=== PATIENT | female | born 1970 | race Caucasian/White ===

== ENCOUNTER 2019-09-04 17:00 | Inpatient (IN) ==
[2019-09-04] MEDS ORDERED: NS 1,000 ML IV ONE (17:54)
--- NOTE | 2019-09-04 18:11 | PROVIDER DOCUMENTATION ---
HPI-General Adult - General Chief Complaint: Abnormal Lab[s] Stated Complaint: DR REFERRAL Time Seen by Provider: 09/04/19 17:55 Source: patient, family Allergies/Adverse Reactions: Patient Allergies Allergy/AdvReac Type Severity Reaction Status Date / Time bupropion HCl * Allergy Intermediate NAUSEA/VOMI Verified 08/04/18 10:12 [From Wellbutrin] TING clarithromycin [From Biaxin] Allergy Intermediate RASH Verified 08/04/18 10:12 meperidine HCl * Allergy Intermediate NAUSEA/VOMI Verified 08/04/18 10:12 [From Demerol] TING Penicillins Allergy Intermediate NAUSEA/VOMI Verified 08/04/18 10:12 TING sulfamethoxazole Allergy Intermediate NAUSEA/VOMI Verified 08/04/18 10:12 [From Bactrim DS] TING trimethoprim Allergy Intermediate NAUSEA/VOMI Verified 08/04/18 10:12 [From Bactrim DS] TING temazepam [From Restoril] Allergy Mild felt Verified 08/04/18 10:12 strange Home Medications: Home Medication List Medication Instructions Recorded Confirmed Last Taken Type Cephalexin [Keflex] 500 mg PO Q6HR 7 Days #28 cap 08/04/18 Unknown Rx Erythromycin Oph Ointment 1 applicatn BOTH EYES 4XDAY 7 Days 08/04/18 Unknown Rx #1 tube Ondansetron [Zofran Odt] 4 mg PO Q4HR PRN #20 tab.rapdis 08/04/18 Unknown Rx - History of Present Illness -Gen Adult Nature of Presenting Problems: 49 yof presents per the direction of Dr. Hassan for initiation of TPN. She has had weight loss, poor appetite, n/v and reports she has been getting IVF as outpatient but now has edema in BLE up to the hips. she appears chronically ill but in NAD. Location of Pain/Injury: reports: abdomen Pain Radiation: reports: no radiation Quality of Pain: reports: pressure Severity: reports: moderate Onset/Duration: reports: unsure Timing: reports: still present Context/Activities at Onset: reports: none Modifying Factors: improves with: nothing Associated Symptoms: reports: fatigue, loss of appetite, nausea, vomiting, weakness Similar Symptoms Previously?: Yes Recently seen or treated by another doctor?: Yes (pcp Dr. hassan) Review of Systems - Adult - REVIEW OF SYSTEMS - ADULT Constitutional: reports: fatique, weight loss. denies: no symptoms reported, see HPI, chills, fever, night sweats, weight gain, other Eyes: reports: no symptoms reported. denies: see HPI, discharge, dry eyes, decreased vision, blurred vision, double vision, eye pain, redness, other Ears, Nose, Mouth & Throat: reports: no symptoms reported. denies: see HPI, ear discharge, ear pain, hearing loss, tinnitus, epistaxis, sinus problem, nose pain, loose teeth, mouth/dental pain, mouth swelling, hoarseness, throat pain, throat swelling, other Cardiovascular: reports: edema. denies: no symptoms reported, see HPI, chest pain, heart murmur, irregular heart rate, orthopnea, palpitations, poor circulation, PND, syncope, other Respiratory: reports: no symptoms reported. denies: see HPI, chronic cough, cough, dyspnea on exertion, excessive sputum production, hemoptysis, pleurisy, shortness of breath, wheezing, other Gastrointestinal: reports: see HPI, nausea, vomiting, other (bloating). denies: no symptoms reported, abdominal pain, hematemesis, constipation, diarrhea, difficulty swallowing, frequent heartburn, poor appetite, rectal bleeding Genitourinary: reports: no symptoms reported. denies: see HPI, dysuria, discharge, frequency, flank pain, frequent UTI's, hematuria, hesitency, incontinence, urinary retention, urgency, other Musculoskeletal: reports: no symptoms reported. denies: see HPI, bone pain, back pain, frequent leg cramps, joint pain, joint swelling, muscle aches, muscle weakness, neck pain, other Integumentary: reports: no symptoms reported. denies: see HPI, hives, hair loss, itching, mole changes, nail changes, rash, skin sores/ulcer, skin thickening, other Neurological: reports: no symptoms reported. denies: see HPI, ataxia, diz ziness/vertigo, headache/migraines, loss of balance, numbness, paresthesia, seizure, slurred speech, syncope, tremors, other Psychiatric: reports: no symptoms reported. denies: see HPI, anxiety, anti- depressant use, alcohol/drug dependence, depression, emotional problems, i nsomnia, panic attacks, suicidal thoughts, other Endocrine: reports: no symptoms reported. denies: see HPI, change in skin pigment, excessive sweating, goiter, cold intolerance, heat intolerance, increased hunger, increased thirst, polyuria, other Hematologic/Lymphatic: reports: no symptoms reported. denies: see HPI, blood clots, easy bruising, low blood count, lymphedema, prolonged bleeding, swollen lymph nodes, transfusions, other Allergic/Immunologic: reports: no symptoms reported. denies: see HPI, allergic reactions, allergic rhinitis, asthma, eczema, food allergy, frequent infections, hay fever, hives, positive PPD, urticaria, other Past History - Adult - PAST MEDICAL HISTORY-ADULT Review of Records: reports: Nursing Assessment Review, Social history reviewed & non-contributory. Major Childhood Illnesses: reports: denies history Cardiovascular: reports: HTN Respiratory: reports: COPD, sleep apnea Gastrointestinal: reports: other (SBO) Obstetrical/Gynecological: reports: denies history Genitourinary: reports: denies history Musculoskeletal: reports: chronic pain Neurological: reports: denies history Psychiatric: reports: anxiety Endocrine/Immune: reports: thyroid disorder Other Conditions: reports: denies history - PRIOR SURGERIES/PROCEDURES Surgical/Procedure History: reports: cholecystectomy, , hernia repair, gastric bypass - PRIOR HOSPITALIZATIONS Prior Hospitalizations: reports: none - IMMUNIZATION STATUS Childhood Immunizations: See Nurse Assessment Flu Vaccine: See Nurse Assessment - FAMILY HISTORY Family History: reviewed, not pertinent Physical Exam-General - PHYSICAL EXAM-ADULT Initial Vital Signs Reviewed: Yes - CONSTITUTIONAL General Appearance: alert, no apparent distress, thin - EYES Eyes: PERRL/EOMI, pink conjunctivae - HEAD, EARS, NOSE, MOUTH & THROAT HENMT: normocephalic/atraumatic, moist mucous membranes, normal ENT inspection - NECK Neck: non-tender, full range of motion, supple - RESPIRATORY Respiratory: chest non-tender, lungs clear, no pleuratic chest pain, no respiratory distress, no accessory muscle use, rales - CARDIOVASCULAR Cardiovascular: normal peripheral pulses, regular rate, rhythm, no gallop, no JVD, no murmur. negative: no edema (ble from ankles to hips) - GASTROINTESTINAL (ABDOMEN) Abdominal Exam: normal bowel sounds, non tender, distended - LYMPHATIC Lymphatic: no adenopathy - MUSCULOSKELETAL Back Exam: normal inspection, no CVA tenderness, no vertebral tenderness Extremity: normal range of motion, non-tender, normal inspection Peripheral Pulses: radial (R): 2+, radial (L): 2+ - SKIN Integumentary: normal color, normal turgor, warm/dry - NEUROLOGIC Neurologic: grossly normal - PSYCHIATRIC Psych/Mental Status: normal mood/affect, oriented x 3 Progress - PLAN OF CARE/RESULTS Progress/Plan/Lab Results: Vital Signs - 8 hr 09/04/19 17:20 Temperature 98.3 F Pulse Rate 80 Respiratory Rate 16 Blood Pressure 77/57 O2 Sat by Pulse Oximetry 100 Orders Category Date Time Status FSBS [Finger Stick Blood Sugar (ED)] DIRECTED Care 09/04/19 17:54 Active Saline Loc NOW Care 09/04/19 17:54 Active CBC WITH ELECTRONIC DIFF [HEME] Stat Lab 09/04/19 17:54 Uncollected COMPREHENSIVE METABOLIC PANEL [CHEM] Stat Lab 09/04/19 17:54 Uncollected MAGNESIUM [CHEM] Stat Lab 09/04/19 17:54 Uncollected PHOSPHORUS [CHEM] Stat Lab 09/04/19 17:54 Uncollected PROTIME WITH INR [COAG] Stat Lab 09/04/19 17:54 Uncollected PTT [COAG] Stat Lab 09/04/19 17:54 Uncollected UA NIMS W/REFLEX CULT [URINALYSIS] Stat Lab 09/04/19 17:54 Uncollected URINE DRUG SCREEN Stat Lab 09/04/19 17:54 Uncollected 0.9% Sodium Chloride Inj [Ns] 1,000 ml Med 09/04/19 17:54 Active IV 999 mls/hr EKG [EKG] Stat Ther 09/04/19 18:05 Ordered CORRECTED CALCIUM 8.7 2/2 HYPOALBUMIN Saw patient with INSURANCE UNDERWRITING ASSISTANT Chantelle Sotomayor. Patient appears chronically ill, jaundiced and anasarca. Upon reviewing her records she likely has undiagnosed liver disease. Her previous old images show fatty liver and some transaminitis. Her BP was low and these patient's chronically run low. Gave some albumin and BP improved. Also gave midodrine. Hypoglycemic and given D50 and started on D5 drip. XR showing pleural effusions. SPoke to Dr Kellogg with Chantelle Sotomayor and patient was accepted for admission. Further orders to be placed by their team. Sifter And Miller at bedside for consult. Dietary consult ordered. Result Diagrams: 09/04/19 19:19 09/04/19 19:19 - XRAY 1 XRAY Study: Chest Impression: See EMR Report (CHEST-1 VIEW - 09/04/2019 INDICATION: Line placement COMPARISON: 02/23/2018 FINDINGS: There is a right-sided dialysis catheter in good position with the distal tip at the lower SVC. There are small bibasilar pleural effusions. No pneumothorax. No infiltrates. Heart size and pulmonary vascularity are normal. IMPRESSION: No complication from line placement. Small bibasilar pleural effusions. Electronically signed by Eliu Peck 09/04/2019 6:40 PM 09/04/19 1840 Interpreting Physician: Eliu Peck MD Dictated Date/Time: 09/04/19 1839 cc: Lulu Sotomayor; Deshaun Hassan) - CONSULTS/PCP/HOSPITALIST Notification #1 *Consult/PCP/Hospitalist*: DR. KELLOGG Time Discussed: 21:10 Consult Disposition: Admit Departure - Departure Date of Disposition Decision: 09/04/19 Time of Disposition Decision: 21:09 DIAGNOSIS: Anorexia, Weakness, Hypotension, Anemia, Nausea & vomiting, Hypoglycemia, Jaundice, Cachexia Disposition: ADMITTED INPATIENT 09 Certified Medical Emergency: Emergent Condition: Fair Referrals and Follow-Ups: Deshaun Hassan [Primary Care Provider] - - Critical Care Note This patient required my direct & personal management of CC.: No Attestation - Physician/ AGAPITO Attestation Patient care was provided by Advanced Practice Provider:: Yes Advanced Practice Provider:: Lulu Sotomayor Advanced Practice Provider documentation review:: The Mid-level provider documentation, treatment plan and medical decision making was reviewed by the physician who agrees with all treatment and medical decision making by the P. The physician spent face to face time with patient:: No Advanced Practice Provider documentation review:: Supervising physician onsite and consulted in the evaluation and care of this patient. The physician did not have a face to face encounter with the patient.
--- NOTE | 2019-09-04 18:42 | Diag Imaging Result Doc PS360 ---
CHEST-1 VIEW - 09/04/2019 INDICATION: Line placement COMPARISON: 02/23/2018 FINDINGS: There is a right-sided dialysis catheter in good position with the distal tip at the lower SVC. There are small bibasilar pleural effusions. No pneumothorax. No infiltrates. Heart size and pulmonary vascularity are normal. IMPRESSION: No complication from line placement. Small bibasilar pleural effusions. Electronically signed by Eliu Peck 09/04/2019 6:40 PM
[2019-09-04] MEDS ORDERED: ALBUMIN 25% IV ONE (19:02)
[2019-09-04] MEDS ORDERED: PROAMATINE PO ONE (19:06)
[2019-09-04] MEDS ORDERED: NS 500 ML IV ONE (19:27)
[2019-09-04 20:01] LABS: BASO# 0.02 X1000 (0.0-0.2); BASO% 0.3 % (0.0-0.8); EOS# 0.06 X1000 (0.0-0.7); EOS% 0.9 % (0.0-10.0); HEMATOCRIT 25.6 % (37.0-47.0); HEMOGLOBIN 8.2 g/dL (12.0-16.0); LYMPH# 2.74 X1000 (1.2-3.4); LYMPH% 39.7 % (20.5-51.1); MCH 34.3 PG (27-31); MCV 107.1 FL (81-99); MONO# 0.37 X1000 (0.11-0.59); MONO% 5.4 % (1.7-9.3); MPV 10.1 FL (7.4-10.4); NEUT# 3.71 X1000 (1.4-6.5); NEUT% 53.7 % (42.2-75.2); PLT 179 X1000 (130-400); RBC 2.39 XMIL (4.2-5.4); RDW 13.5 % (11.5-14.5)
[2019-09-04 20:05] LABS: INR 1.55; PROTIME 18.9 Seconds (11.0-16.0)
[2019-09-04 20:06] LABS: PTT 38.2 Seconds (22.3-41.8)
[2019-09-04] MEDS ORDERED: D50W SYRINGE IV ONE ×3 (20:17→21:18)
[2019-09-04] MEDS ORDERED: D50W SYRINGE ONE (20:23)
[2019-09-04 20:38] LABS: AGAP 17; ALB/GLOB RATIO 0.8; ALBUMIN 1.8 g/dL (3.5-5.0); ALKALINE PHOSPHATASE 161 U/L (32-104); BUN 6 mg/dL (8-22); CALCIUM 6.9 mg/dL (8.8-10.2); CHLORIDE 115 mmol/L (98-107); COSMO 285; CREATININE 0.7 mg/dL (0.5-0.9); ESTIMATED GFR > 60; GLUCOSE 44 mg/dL (70-104); GOT 30 U/L (10-30); GPT 18 U/L (10-36); MAGNESIUM 1.7 mg/dL (1.5-2.7); PHOSPHORUS 1.6 mg/dL (2.7-4.5); POTASSIUM 3.4 mmol/L (3.5-5.1); PREALBUMIN 6.5 mg/dL (20-40); SODIUM 146 mmol/L (136-145); TCO2 14 mmol/L (25-35); TOTAL BILIRUBIN 0.34 mg/dL (0.20-1.00)
[2019-09-04] MEDS ORDERED: D5 1/2 NS + KCL 20 MEQ 1,000 ML IV ONE (20:53)
[2019-09-04] MEDS ORDERED: INSTA-GLUCOSE PO ONE (22:25)
--- NOTE | 2019-09-04 23:44 | HISTORY AND PHYSICAL ---
PRIMARY CARE PROVIDER: Deshaun Mendoza MD REASON FOR ADMISSION: Sent by doctor's office for abnormal labs. HISTORY OF PRESENT ILLNESS: Ms. Ravi is an unfortunate 49-year-old female with a past medical history of chronic low back pain; status post gastric bypass in 2004; iron-deficiency anemia; chronically elevated transaminitis; anxiety and depression. She came to the ED for abnormal lab work. She was supposed to initiate TPN at home; however, they were afraid of refeeding syndrome so she was directed to the ED. She was found to have anemia that appears to be stable, and hypokalemia. She was also found to be hypoglycemic with blood sugars in the 30s and 40s, as well as hypocalcemia at 6.9. Phosphate of 1.6, alkaline phosphatase 161, albumin of 1.8 and a prealbumin of 6.5. She reports yesterday home health came out and gave her several liters of fluid. She reports lower extremity swelling that goes all the way up into her hips, but she does report this has been ongoing for the past 5 years. She has had a complete workup to rule out thyroid cancer, stomach cancer, pancreatic cancer, liver cancer and female cancer. She reports when she eats she gets bad nausea or she will vomit what she eats. She can only eat small amounts at a time; however, she states that she does eat breakfast, lunch and dinner. In the morning she will have a biscuit with some type of meat, soup and salad for lunch, and she reports that she is able to cook a full dinner made from scratch. She reported that she does have an appointment with [facility] that she has not been able to keep, as well as [facility] in [place] secondary to having a port placed. She as well had some hypotension in the 70s, and 80s; however, the patient is not symptomatic with this. She was given IV fluid, midodrine as well as a dose of albumin in the E. We will monitor her in on PVC and continue with the D5 half normal saline with potassium drip. We will treat her hypocalcemia and obtain an EKG. The patient reports that she would not have come to the hospital had she not been called by her physician to come in. She reports feeling about her norm. PAST MEDICAL HISTORY: 1. Unexplained weight loss. 2. Moderate to severe malnutrition. 3. Anemia. 4. Depression. 5. Fatty liver. 6. Chronic low back pain. 7. Iron-deficiency anemia. PAST SURGICAL HISTORY: 1. Cholecystectomy. 2. Gastric bypass surgery. 3. Gastroduodenal junction following small-bowel obstruction. 4. Neck surgery. 5. Central line placement. FAMILY HISTORY: Notable for heart disease. No cancer in first-degree relatives. ALLERGIES: 1. Wellbutrin: Nausea and vomiting. 2. Biaxin: Rash. 3. Demerol: Nausea and vomiting. 4. Penicillin: Nausea and vomiting. 5. Bactrim DS: Nausea and vomiting. 6. Restoril: [place] strange. MEDICATIONS: Home medications are currently being compiled. REVIEW OF SYSTEMS: Twelve-point review of systems was completed and negative except for those mentioned in the HPI. PHYSICAL EXAMINATION: VITAL SIGNS: Temperature 98.3 degrees, heart rate 80, respirations 16, initial blood pressure was 77/57, O2 is 100% on room air. GENERAL: Ms. Ravi is a chronically ill-appearing 49-year-old female who looks older than her stated age. HEENT: Normocephalic. PERRL. Anicteric. Mucous membranes are dry. NECK: Supple. No JVD. CARDIOVASCULAR: S1, S2 appreciated. No murmurs, gallops or rubs noted. RESPIRATORY: Lung sounds clear bilaterally. ABDOMEN: Soft, nontender, nondistended. Normal bowel sounds. EXTREMITIES: Pitting edema 2 to 3+ up to the hips. Could not assess peripheral pulses in the lower extremities secondary to the edema. No clubbing or cyanosis. NEUROLOGIC: No focal deficits noted. SKIN: Appears to be warm, dry and intact. DIAGNOSTIC DATA: Chest x-ray shows no complication from line placement. Small bibasilar pleural effusions. LABORATORY DATA: White count 6, hemoglobin and hematocrit 8 and 25, platelet count is 179,000. Sodium 146, potassium 3.4, BUN 6, creatinine 0.7. Blood glucose initially 30s and 40s, now 87. Calcium is 6.9, phosphate 1.6, albumin 1.8. Prealbumin 6.5. ASSESSMENT AND PLAN: 1. Continued unexplained weight loss. The patient has had several workups in the past. Supposed to be following up with [facility] in [place], as well as [facility] in [place]. They are trying to get her PET scan approved. States she has been ruled out for all types of cancers, but she does have a history of a gastric bypass. 2. Severe protein-calorie malnutrition. She had an albumin of 1.8 and a prealbumin of 6.5. She was given some albumin in the emergency department . She is supposed to start home total parenteral nutrition; however, her family provider was worried about refeeding syndrome and wanted all her electrolytes corrected before starting total parenteral nutrition. 3. Anemia, appears to be of chronic disease, history of iron-deficiency anemia. 4. Clinical dehydration. Continue intravenous fluids. 5. Hypoglycemia. She has been placed on a D5 drip. 6. Hypocalcemia. We will give 1 g of calcium gluconate. 7. Hypokalemia. Continue with intravenous potassium. 8. Hypophosphatemia. We will continue to monitor. 9. Hypotension. The patient appears to be at her baseline. She is not symptomatic. She was given midodrine as well as intravenous boluses. We will monitor her on PVC overnight. 10. Further recommendations to follow physician evaluation, laboratory and diagnostic data. Dictated by JANNA Duarte for John Florez MD I have performed a face to face diagnostic evaluation. Labs/xrays- reviewed. Exam- Chest- clear, CV- regular. Abd- soft. A/P- Severe protein calorie malnutrition, anemia,dehydration- Admit, IV fluids, nutrition consult, iron studies. Dr. Florez cc: MD Deshaun Anand MD MTDD
[2019-09-05] MEDS ORDERED: CALCIUM GLUCONATE 1 GM in NS 50 ML IV ONE ×2
[2019-09-05] MEDS: ZOFRAN IV PRN ×5 (00:38→20:59)
[2019-09-05] MEDS: PERCOCET-10 PO PRN ×2 (05:38→15:07)
[2019-09-05 06:23] LABS: BASO# 0.02 X1000 (0.0-0.2); BASO% 0.3 % (0.0-0.8); EOS# 0.02 X1000 (0.0-0.7); EOS% 0.3 % (0.0-10.0); HEMATOCRIT 24.7 % (37.0-47.0); HEMOGLOBIN 7.5 g/dL (12.0-16.0); LYMPH# 2.25 X1000 (1.2-3.4); LYMPH% 35.8 % (20.5-51.1); MCH 32.6 PG (27-31); MCHC 30.4 g/dL (33-37); MCV 107.4 FL (81-99); MONO# 0.32 X1000 (0.11-0.59); MONO% 5.1 % (1.7-9.3); MPV 10.3 FL (7.4-10.4); NEUT# 3.67 X1000 (1.4-6.5); NEUT% 58.5 % (42.2-75.2); PLT 188 X1000 (130-400); RDW 13.5 % (11.5-14.5); WBC 6.28 X1000 (4.8-10.8)
--- NOTE | 2019-09-05 06:51 | Diag Imaging Result Doc PS360 ---
CHEST-PORTABLE - 09/05/2019 INDICATION: r/o pulm edema COMPARISON: 09/04/2019 FINDINGS: Stable right dialysis catheter. There has been improvement in the small bilateral pleural effusions. No infiltrates or definite pulmonary edema. Heart size is normal. IMPRESSION: Improvement in the small bilateral pleural effusions. Electronically signed by Eliu Peck 09/05/2019 6:48 AM
--- NOTE | 2019-09-05 07:20 | EKG Report ---
Test Performed on : 09/05/2019 07:03:49 AM Test Reason : recheck Blood Pressure : / mmHG Vent. Rate : 065 BPM Atrial Rate : 065 BPM P-R Int : 158 ms QRS Dur : 074 ms QT Int : 322 ms P-R-T Axes : 087 032 078 degrees QTc Int : 334 ms Normal sinus rhythm. Low voltage QRS Cannot rule out Anteroseptal infarct (cited on or before 11-NOV-2013) Abnormal ECG When compared with ECG of 28-MAY-2016 23:30, QRS voltage has decreased Questionable change in initial forces of Anteroseptal leads T wave inversion no longer evident in Anterior leads Nonspecific T wave abnormality now evident in Lateral leads QT has shortened Confirmed by Kartik AVINA, Yong Upton ([id number]) on 09/05/2019 9:01:20 AM
[2019-09-05 07:51] LABS: AGAP 15; BUN 5 mg/dL (8-22); CHLORIDE 123 mmol/L (98-107); CHOLESTEROL 55 mg/dL (0-200); COSMO 298; CREATININE 0.6 mg/dL (0.5-0.9); ESTIMATED GFR > 60; GLUCOSE 120 mg/dL (70-104); GOT 22 U/L (10-30); MAGNESIUM 1.6 mg/dL (1.5-2.7); PHOSPHORUS 1.7 mg/dL (2.7-4.5); POTASSIUM 3.4 mmol/L (3.5-5.1); PREALBUMIN 5.8 mg/dL (20-40); SODIUM 151 mmol/L (136-145); TCO2 13 mmol/L (25-35); TRIGLYCERIDES 108 mg/dL (35-135)
[2019-09-05 07:57] LABS: CALCIUM 6.9 mg/dL (8.8-10.2)
[2019-09-05] MEDS: PHENERGAN PR SCH ×2 (08:13→21:10)
[2019-09-05 09:49] LABS: ALB/GLOB RATIO 1.3; ALBUMIN 2.1 g/dL (3.5-5.0); DIRECT BILIRUBIN 0.2 mg/dL (0.00-0.20); TOTAL BILIRUBIN 0.26 mg/dL (0.20-1.00); TOTAL PROTEIN 3.7 g/dL (6.3-8.3)
[2019-09-05] MEDS ORDERED: SODIUM BICARBONATE 8.4% 150 MEQ in D5W 1,000 ML IV SCH (10:30)
[2019-09-05] MEDS ORDERED: ROBAXIN PO PRN (10:33)
[2019-09-05] MEDS ORDERED: MYCOSTATIN SUSP PO PRN (10:33)
[2019-09-05] MEDS ORDERED: KLOR-CON PO ONE (10:35)
[2019-09-05] MEDS ORDERED: VANCOMYCIN IV PER PHARMACY MISC SCH (11:15)
[2019-09-05] MEDS: K-PHOS PO SCH ×3 (11:38→17:26)
[2019-09-05] MEDS: KEPPRA PO SCH ×2 (11:39→20:59)
[2019-09-05] MEDS: CENTRUM SILVER PO SCH (11:39)
[2019-09-05] MEDS: MAXIPIME 2 GM in NS 100 ML IV SCH (11:40)
[2019-09-05] MEDS: PROTONIX PO SCH (11:40)
--- NOTE | 2019-09-05 14:36 | ECHO REPORT ---
ORDER DATE: 09/05/2019 INDICATION: Hypertension, evaluate RV and LV function. FINDINGS: 1. The right atrium appears normal in size. 2. Trace tricuspid regurgitation. RV systolic pressure of 35. 3. Normal RV size and systolic function. 4. No significant pulmonic insufficiency. 5. Normal left atrial size with a volume index of 27, dimension of 3.4 cm. 6. No mitral prolapse. Trace mitral regurgitation. No evidence of mitral stenosis. 7. Normal LV size. End-diastolic dimension of 4.5 cm. Normal wall thicknesses with a posterior and interventricular septal wall thickness of 0.8 and 0.6 cm respectively. Normal LV systolic function. The estimated EF is 60% with normal wall motion. 8. Aortic valve opens well. It is somewhat sclerotic but does not appear to be stenotic. No insufficiency. 9. Aorta appears normal in visualized segments. 10. No pericardial effusion seen. cc: MD Bob Villaseñor MD
[2019-09-05] MEDS: VANCOMYCIN 1,200 MG in NS 250 ML IV SCH (14:52)
[2019-09-05 15:17] LABS: URINE SOURCE CATH
--- NOTE | 2019-09-05 15:18 | PROGRESS NOTE ---
DATE: 09/05/2019 INTERVAL HISTORY: Ms. Ravi was admitted overnight with chief complaints of multiple metabolic derangement, hypotension, and for monitoring of refeeding syndrome. In the morning time, she appears tired. However, she denies any new complaints. She states she has had weight loss issues since many years. She has had chronic diarrhea, nausea, and vomiting. She denies noticing any new complaints except that she is feeling a little sick now than she did before. She denies any fevers, chills, abdominal pain, unusual chest pain, shortness of breath, or cough. OBJECTIVE: Vitals: Temperature 97.9 degrees, pulse 70, respiratory rate 21, blood pressure 93/54. She is saturating 100% on room air. General: Chronically ill appearing. HEENT: She has coarse hair with thinned out hair. Dry oral cavity. Conjunctival pallor. No icterus. Lungs: Air entry bilaterally equal. No wheeze, rhonchi, or crackles. Cardiovascular: S1, S2 normal. No murmur, rub, or gallop. Right-sided chest central venous catheter. There are some dried flecks of blood around it. Abdomen: Obese, soft, and nontender. Tympanic to percussion. Active bowel sound. She has lower extremity edema affecting bilateral legs. She is alert and oriented x3. She is able to raise both upper and lower extremities above ground level. LABORATORY DATA: Suggestive of no leukocytosis, macrocytic anemia. Normal platelet count. She has INR of 1.5. Hypernatremia, hyperchloremia, hypokalemia. Low bicarbonate, hypoglycemia, hypocalcemia, hypophosphatemia. Microbiology, no new data. Chest x-ray on admission had improvement in small bilateral pleural effusions. Electrocardiogram had normal sinus rhythm. ASSESSMENT AND PLAN: 1. Hypotension, likely in the setting of intravascular volume depletion, poor nutritional status, hypovolemia, and metabolic derangement. I will give her dextrose D5 water with bicarbonate drip. I will also follow up 8 a.m. cortisol level, echocardiogram, and will monitor urine output. Follow up blood culture, urine culture. Start broad-spectrum antibiotics until culture results return. 2. Severe protein-calorie malnutrition, which has been ongoing since many years. She should get outpatient GI a regular physician followup. She is supposed to be starting total parenteral nutrition. 3. Metabolic derangement including hypernatremia, hyperchloremia, hypokalemia, hypophosphatemia, currently being repleted. I will keep a close eye over her electrolytes. I am holding off on starting total parenteral nutrition until her electrolytes are better. 4. Other. She has history of gastric bypass surgery in 2014, perforated peptic ulcer in 2009, and weight loss with chronic diarrhea, chronic nausea and vomiting since 2013. She should have outpatient monitoring for these issues. DISPOSITION: I will continue to monitor patient inside the hospital. Plan of care discussed with the patient and her at bedside. All of their questions were answered. cc: Bob Rodriguez MD
[2019-09-05 15:28] LABS: BILIRUBIN URINE NEGATIVE (NEGATIVE); BLOOD URINE NEGATIVE (NEGATIVE); COLOR YELLOW; GLUCOSE URINE NEGATIVE (NEGATIVE); KETONE URINE NEGATIVE (NEGATIVE); LEUKOCYTES URINE NEGATIVE (NEGATIVE); NITRITE URINE NEGATIVE (NEGATIVE); PH URINE 6.5; PROTEIN URINE NEGATIVE (NEGATIVE); SP GRAVITY URINE 1.006; TURBIDITY URINE CLEAR (CLEAR); UROBILINOGEN URINE NORMAL (NORMAL)
[2019-09-05 15:30] LABS: UR EPITHELIAL CELLS <10 /HPF (<10); URINE BACTERIA NEGATIVE /HPF; URINE RBC <10 /HPF (<10); URINE WBC <10 /HPF (<10)
[2019-09-05 15:53] LABS: UR AMPHETAMINES QUAL NONE DETECTED (NONE DETECT); UR BARBITUATES QUAL NONE DETECTED (NONE DETECT); UR BENZODIAZEPIN QUAL NONE DETECTED (NONE DETECT); UR CANNABINOIDS QUAL NONE DETECTED (NONE DETECT); UR COCAINE QUAL NONE DETECTED (NONE DETECT); UR METHADONE QUAL NONE DETECTED (NONE DETECT); UR OPIATES QUAL NONE DETECTED (NONE DETECT); UR OXYCODONE QUAL PRESUMPTIVE POSITIVE (NONE DETECT); UR PCP QUAL NONE DETECTED (NONE DETECT)
[2019-09-05 18:14] LABS: ESTIMATED GFR > 60
[2019-09-05 18:26] LABS: AGAP 15; BUN 5 mg/dL (8-22); CALCIUM 7.1 mg/dL (8.8-10.2); CHLORIDE 117 mmol/L (98-107); COSMO 287; CREATININE 0.6 mg/dL (0.5-0.9); GLUCOSE 80 mg/dL (70-104); POTASSIUM 3.9 mmol/L (3.5-5.1); SODIUM 146 mmol/L (136-145); TCO2 14 mmol/L (25-35)
[2019-09-05] MEDS: DESYREL PO SCH (20:59)
[2019-09-05] MEDS: REMERON PO SCH (20:59)
[2019-09-05] MEDS: THYROID PO SCH (20:59)
[2019-09-05] MEDS ORDERED: ZOLOFT PO SCH (21:00)
[2019-09-06] MEDS: MAXIPIME 2 GM in NS 100 ML IV SCH ×2 (00:22→11:20)
[2019-09-06] MEDS ORDERED: NS 1,000 ML IV ONE (04:12)
[2019-09-06 06:33] LABS: BASO# 0.02 X1000 (0.0-0.2); BASO% 0.3 % (0.0-0.8); EOS# 0.04 X1000 (0.0-0.7); EOS% 0.7 % (0.0-10.0); HEMATOCRIT 24.6 % (37.0-47.0); HEMOGLOBIN 7.6 g/dL (12.0-16.0); LYMPH# 2.35 X1000 (1.2-3.4); LYMPH% 39.2 % (20.5-51.1); MCH 32.6 PG (27-31); MCHC 30.9 g/dL (33-37); MCV 105.6 FL (81-99); MONO# 0.26 X1000 (0.11-0.59); MONO% 4.3 % (1.7-9.3); MPV 9.9 FL (7.4-10.4); NEUT# 3.32 X1000 (1.4-6.5); NEUT% 55.5 % (42.2-75.2); PLT 173 X1000 (130-400); RBC 2.33 XMIL (4.2-5.4); RDW 13.8 % (11.5-14.5); WBC 5.99 X1000 (4.8-10.8)
[2019-09-06 07:16] LABS: AGAP 16; BUN 5 mg/dL (8-22); CALCIUM 6.7 mg/dL (8.8-10.2); CHLORIDE 117 mmol/L (98-107); COSMO 287; CREATININE 0.6 mg/dL (0.5-0.9); ESTIMATED GFR > 60; GLUCOSE 59 mg/dL (70-104); MAGNESIUM 1.5 mg/dL (1.5-2.7); PHOSPHORUS 1.7 mg/dL (2.7-4.5); POTASSIUM 3.7 mmol/L (3.5-5.1); SODIUM 147 mmol/L (136-145); TCO2 14 mmol/L (25-35)
[2019-09-06] MEDS: SODIUM BICARBONATE 8.4% 150 MEQ in D5W 1,000 ML IV SCH ×2 (07:57→16:46)
[2019-09-06] MEDS: MAGNESIUM SULFATE 2 GM/S.W.I. 2 GM/50 ML IVPB IV SCH ×2 (08:44→11:57)
[2019-09-06] MEDS: PROTONIX PO SCH (09:06)
[2019-09-06] MEDS: VANCOMYCIN 1,200 MG in NS 250 ML IV SCH (09:06)
[2019-09-06] MEDS: CENTRUM SILVER PO SCH (09:06)
[2019-09-06] MEDS: KEPPRA PO SCH ×2 (09:06→22:18)
[2019-09-06] MEDS: THYROID PO SCH ×2 (09:06→22:18)
[2019-09-06] MEDS: PHENERGAN PR SCH ×2 (09:07→22:56)
--- NOTE | 2019-09-06 10:37 | PROGRESS NOTE ---
DATE: 09/06/2019 INTERVAL HISTORY: No acute events overnight. Her hypernatremia and some of the other electrolyte abnormalities were largely stable or slightly improving. Her lactate was normal. Her cortisol level was also within acceptable range. Her echocardiogram had ejection fraction of 60% with normal wall motion without any significant valvular pathology. Her EKG had normal sinus rhythm. She was hypotensive overnight and was given 1 L of normal saline and in the morning time, I had started her back on D5 bicarbonate drip. SUBJECTIVE: She denies any new complaints. She states she would need Diflucan for vaginal candidiasis that she often gets when she is on antibiotics, and I will give her a dose tomorrow. Currently, she has been afebrile. She is not tachycardic. Her recent MAP is more than 65 mmHg with blood pressure of 96/58. OBJECTIVE: General: On my evaluation, she does appear lethargic. HEENT: Oral cavity is dry. Respiratory: Air entry bilaterally equal. No wheeze, rhonchi, or crackles. Cardiovascular: S1, S2 normal. No murmur, rub or gallop. Chest: She has a right-sided chest central venous catheter. There are dried flecks of blood around it. Abdomen: Obese, soft, nontender, tympanic to percussion. Active bowel sounds. Extremities: She has lower extremity edema affecting bilateral legs. She is alert and oriented x3. She is able to raise both upper and lower extremities above ground level. Genitourinary: She has a urine catheter. LABORATORY DATA: Suggestive of anemia, macrocytosis, normal platelet count, hypernatremia, hyperchloremia, low bicarbonate, hypocalcemia, hypophosphatemia, hypomagnesemia. MICROBIOLOGY: Blood cultures are in lab. Urinalysis did not have pyuria. ASSESSMENT AND PLAN: 1. Hypotension in the setting of intravascular volume depletion, poor nutritional status, hypovolemia and hypoalbuminemia. Her cortisol level has been normal. Continue intravenous fluids. If she remains hypotensive, my plan would be to transfer her to ICU and start her on norepinephrine drip. Continue intravenous antibiotics and follow up final blood culture results. 2. Severe protein calorie malnutrition since many years. She should have outpatient GI evaluation which is ongoing. I will resume total parenteral nutrition in next 24 hours once her metabolic derangements are better. 3. Hypernatremia, hyperchloremia, hypokalemia, hypophosphatemia, currently being managed with intravenous fluids and electrolyte repletion. 4. Others. She has history of gastric bypass in 2005, perforated peptic ulcer in 2009 and weight loss and chronic nausea and vomiting since 2013. She is having outpatient GI as well as regular physician followup for these issues. 5. Disposition. I will continue to monitor patient inside the PVC unit and potentially transfer her to ICU if her hypotension does not get better with IV fluids. I am also giving her intravenous albumin for hypoalbuminemia due to poor nutrition and severe protein calorie malnutrition. Plan of care discussed with her. All questions have been answered. cc: Bob Rodriguez MD
[2019-09-06] MEDS: K-PHOS PO SCH ×3 (11:20→22:24)
[2019-09-06] MEDS: ZOFRAN IV PRN (14:10)
[2019-09-06 17:11] LABS: AGAP 16; BUN 4 mg/dL (8-22); CHLORIDE 110 mmol/L (98-107); COSMO 283; CREATININE 0.6 mg/dL (0.5-0.9); ESTIMATED GFR > 60; GLUCOSE 91 mg/dL (70-104); MAGNESIUM 2.5 mg/dL (1.5-2.7); PHOSPHORUS 1.7 mg/dL (2.7-4.5); POTASSIUM 3.5 mmol/L (3.5-5.1); SODIUM 144 mmol/L (136-145); TCO2 18 mmol/L (25-35)
[2019-09-06 17:20] LABS: CALCIUM 6.7 mg/dL (8.8-10.2)
[2019-09-06] MEDS ORDERED: ALBUMIN 25% IV ONE (19:00)
[2019-09-06] MEDS: REMERON PO SCH (22:19)
[2019-09-06] MEDS: DESYREL PO SCH (22:19)
[2019-09-07] MEDS ORDERED: CALMOSEPTINE OINTMENT TOP PRN (00:54)
[2019-09-07] MEDS: MAXIPIME 2 GM in NS 100 ML IV SCH (01:01)
[2019-09-07] MEDS: FLAGYL PO SCH ×2 (01:01→05:13)
[2019-09-07] MEDS: VANCOMYCIN 1,200 MG in NS 250 ML IV SCH (02:05)
[2019-09-07] MEDS: SODIUM BICARBONATE 8.4% 150 MEQ in D5W 1,000 ML IV SCH ×3 (02:57→20:21)
[2019-09-07 06:35] LABS: BASO# 0.03 X1000 (0.0-0.2); BASO% 0.4 % (0.0-0.8); EOS# 0.02 X1000 (0.0-0.7); EOS% 0.3 % (0.0-10.0); HEMATOCRIT 22.3 % (37.0-47.0); HEMOGLOBIN 7.2 g/dL (12.0-16.0); LYMPH# 1.82 X1000 (1.2-3.4); MCH 32.9 PG (27-31); MCHC 32.3 g/dL (33-37); MCV 101.8 FL (81-99); MONO# 0.51 X1000 (0.11-0.59); MONO% 7.3 % (1.7-9.3); MPV 10.3 FL (7.4-10.4); NEUT# 4.63 X1000 (1.4-6.5); PLT 169 X1000 (130-400); RBC 2.19 XMIL (4.2-5.4); RDW 13.8 % (11.5-14.5); WBC 7.01 X1000 (4.8-10.8)
[2019-09-07 06:46] LABS: AGAP 18; BUN 4 mg/dL (8-22); CHLORIDE 105 mmol/L (98-107); COSMO 285; CREATININE 0.7 mg/dL (0.5-0.9); ESTIMATED GFR > 60; GLUCOSE 125 mg/dL (70-104); MAGNESIUM 1.9 mg/dL (1.5-2.7); PHOSPHORUS 2.5 mg/dL (2.7-4.5); POTASSIUM 3.1 mmol/L (3.5-5.1); SODIUM 144 mmol/L (136-145); TCO2 21 mmol/L (25-35)
[2019-09-07 06:47] LABS: CALCIUM 6.7 mg/dL (8.8-10.2)
[2019-09-07 08:17] LABS: BANDS 6 % (0-1); HYPOCHROM 1+; LYMPHS 16 % (21-51); MONO 2 % (1-9); POIKILOCYTOSIS 1+; SEGS 76 % (42-75)
[2019-09-07 08:55] LABS: ALB/GLOB RATIO 1.5; ALBUMIN 2.4 g/dL (3.5-5.0); DIRECT BILIRUBIN 0.2 mg/dL (0.00-0.20); TOTAL BILIRUBIN 0.41 mg/dL (0.20-1.00)
[2019-09-07] MEDS: PROTONIX PO SCH (09:07)
[2019-09-07] MEDS: KEPPRA PO SCH ×2 (09:07→20:21)
[2019-09-07] MEDS: CENTRUM SILVER PO SCH (09:07)
[2019-09-07] MEDS: K-PHOS PO SCH ×3 (09:07→17:05)
[2019-09-07] MEDS: THYROID PO SCH ×2 (09:07→20:21)
[2019-09-07] MEDS: PHENERGAN PR SCH (09:07)
[2019-09-07] MEDS ORDERED: DIFLUCAN PO ONE (10:00)
[2019-09-07] MEDS ORDERED: PHENERGAN PO PRN (12:07)
--- NOTE | 2019-09-07 12:41 | PROGRESS NOTE ---
DATE: 09/07/2019 INTERVAL HISTORY: Her cortisol level was normal. Echocardiogram had good left ventricular ejection fraction. Blood culture has not shown any growth. C. Difficile antigen and toxin were positive. She was started on metronidazole. SUBJECTIVE: Ms. Ravi wants me to start her on her home Phenergan. I discussed with her about improvement in electrolytes and possibly starting TPN today. She denies any vomiting though she has been nauseous, which is chronic. She denies any abdominal pain. She complains of any diarrhea without any abdominal pain. I discussed with her about physical therapy, and trying to come out of bed. VITAL SIGNS: Temperature of 99.1 degrees, pulse 90, respiratory 25, blood pressure 145/66, and saturating 97% on room air. PHYSICAL EXAMINATION: General: Not in any acute distress. Oral cavity is dry. Skin: Dry. Lungs: Air entry bilaterally equal. No wheeze, rhonchi, or crackles. Cardiovascular: S1, S2 normal. No murmur or gallop. She has a right-sided chest central venous catheter. Cardiovascular: S1, S2 normal. No murmur, rub or gallop. Abdomen: Soft and nontender. Tympanic to percussion. Extremities: She has lower extremity edema affecting bilateral legs. Neurologic: She is alert and oriented x3. She is able to raise both upper and lower extremity above ground level. She does have a urine catheter for monitoring of urine output, and she has been making initially 1.9 and now 3.8 L of urine. LABORATORY: Labs are suggestive of anemia which is stable. Normal platelet count, resolution of hypernatremia, resolution of hyperchloremia. Hypokalemia currently being repleted. Normal kidney function, hypocalcemia currently being repleted. Hypophosphatemia which is improving. Slight elevation of alkaline phosphatase. Hypoalbuminemia. MICROBIOLOGY: C. Difficile toxin antigen are positive. IMAGING: Echocardiogram had ejection fraction of normal 60% with normal wall motion. Cortisol level was normal. ASSESSMENT AND PLAN: 1. Hypotension in the setting of intravascular volume depletion. Poor nutritional status, and general debility as well as hypoalbuminemia. Echocardiogram, cortisol, and blood cultures have been normal. Continue intravenous fluids and encourage oral intake. Stop intravenous antibiotics. 2. Acute C. Difficile associated diarrhea. Start patient on oral vancomycin. 3. Hypernatremia. 4. Hyperchloremia which have been resolved. 5. I will replete her hypokalemia and hypophosphatemia. 6. History of gastric bypass in 2004. 7. Perforated peptic ulcer in 2009. 8. Weight loss with chronic nausea and vomiting since 2013. She is being worked up outpatient GI, and was supposed to start total parenteral nutrition. I will start total parenteral nutrition today for her severe protein energy malnutrition, and watch inside the hospital for 24 to 48 hours for signs and symptoms of re feeding syndrome. 9. Disposition: I will monitor her in PVC unit. She has not decided about her future wishes in terms of cardiopulmonary resuscitation. At home, she was being followed up by hospice services, which will be resumed at the time of discharge, which I would anticipate in next 48 hours if things continue to improve. cc: Bob Rodriguez MD
[2019-09-07] MEDS: VANCOCIN PO SCH ×3 (14:14→20:21)
[2019-09-07] MEDS ORDERED: D10W 1,000 ML IV SCH (15:15)
[2019-09-07] MEDS: TPN ELECTROLYTES IV SCH ×9 (16:56)
[2019-09-07] MEDS: MAGNESIUM SULFATE IV SCH ×9 (16:56)
[2019-09-07] MEDS: [UNRECOGNIZED DRUG - OTHER] IV SCH ×9 (16:56)
[2019-09-07] MEDS: CALCIUM GLUCONATE IV SCH ×9 (16:56)
[2019-09-07] MEDS: LIPOSYN 20% 500 ML IV SCH (16:56)
[2019-09-07] MEDS: REMERON PO SCH (20:21)
[2019-09-07] MEDS: ZOLOFT PO SCH (20:21)
[2019-09-07] MEDS: DESYREL PO SCH (20:21)
[2019-09-07] MEDS: TUMS PO SCH (20:23)
[2019-09-07] MEDS: TYLENOL PO PRN (20:28)
[2019-09-07] MEDS: ZOFRAN IV PRN (20:39)
[2019-09-07] MEDS ORDERED: TORADOL IV ONE (22:54)
[2019-09-08] MEDS: VANCOCIN PO SCH ×4 (03:33→20:47)
[2019-09-08] MEDS: SODIUM BICARBONATE 8.4% 150 MEQ in D5W 1,000 ML IV SCH ×2 (05:21→07:44)
[2019-09-08] MEDS: ZOFRAN IV PRN ×3 (06:13→20:55)
[2019-09-08 07:03] LABS: AGAP 18; BASO# 0.02 X1000 (0.0-0.2); BASO% 0.3 % (0.0-0.8); BUN 3 mg/dL (8-22); CHLORIDE 103 mmol/L (98-107); COSMO 294; CREATININE 0.6 mg/dL (0.5-0.9); EOS# 0.03 X1000 (0.0-0.7); EOS% 0.4 % (0.0-10.0); ESTIMATED GFR > 60; GLUCOSE 156 mg/dL (70-104); HEMATOCRIT 22.5 % (37.0-47.0); HEMOGLOBIN 7.2 g/dL (12.0-16.0); LYMPH# 2.34 X1000 (1.2-3.4); LYMPH% 34.6 % (20.5-51.1); MCH 32.9 PG (27-31); MCV 102.7 FL (81-99); MONO# 0.43 X1000 (0.11-0.59); MONO% 6.4 % (1.7-9.3); MPV 10.5 FL (7.4-10.4); NEUT# 3.95 X1000 (1.4-6.5); NEUT% 58.3 % (42.2-75.2); PHOSPHORUS 2.6 mg/dL (2.7-4.5); PLT 164 X1000 (130-400); POTASSIUM 3.2 mmol/L (3.5-5.1); RBC 2.19 XMIL (4.2-5.4); RDW 13.9 % (11.5-14.5); SODIUM 148 mmol/L (136-145); TCO2 27 mmol/L (25-35); WBC 6.77 X1000 (4.8-10.8)
[2019-09-08 07:07] LABS: TSH 3.01 uIUmL (0.27-4.20)
[2019-09-08 07:12] LABS: FREE T4 0.62 ng/dL (0.93-1.70)
[2019-09-08 07:14] LABS: CALCIUM 6.6 mg/dL (8.8-10.2)
[2019-09-08] MEDS: KEPPRA PO SCH ×2 (08:42→20:47)
[2019-09-08] MEDS: PROTONIX PO SCH (08:42)
[2019-09-08] MEDS: TUMS PO SCH ×3 (08:42→20:47)
[2019-09-08] MEDS: CENTRUM SILVER PO SCH (08:42)
[2019-09-08] MEDS: THYROID PO SCH ×2 (08:42→20:47)
[2019-09-08] MEDS ORDERED: SODIUM BICARBONATE 8.4% 150 MEQ in D5W 1,000 ML IV SCH (08:45)
[2019-09-08] MEDS ORDERED: ALBUMIN 25% IV ONE (10:51)
[2019-09-08] MEDS ORDERED: KLOR-CON PO ONE (10:55)
[2019-09-08] MEDS: CELEBREX PO SCH (10:55)
[2019-09-08] MEDS: LIDODERM TOP SCH (10:55)
--- NOTE | 2019-09-08 11:20 | PROGRESS NOTE ---
DATE: 09/08/2019 INTERVAL HISTORY: No acute events overnight. She was started on intravenous total parenteral nutrition that she has been tolerating well so far. We discussed about her low blood pressure being as a result of hypoalbuminemia, poor nutritional status, and intravascular volume depletion. We discussed about stopping the intravenous fluids today. We also discussed about holding the pain medication. Currently, she states she is feeling congested and I discussed about stopping the IV fluids. VITAL SIGNS: Temperature 98.4 degrees, pulse 79, respiratory rate 18, blood pressure 99/67, saturating 96% on room air. PHYSICAL EXAMINATION: Not in acute distress. Oral cavity is moist. She has crackles in the infrascapular region bilaterally. S1, S2 normal. Not tachycardic. No murmur, rub, or gallop. Abdomen is soft, nontender. Bilateral lower extremity edema. LABS: Suggestive of anemia, normal platelet count. Hypokalemia and hypocalcemia which are being repleted currently. Blood culture did not have any growth so her antibiotics were stopped. Her Clostridium difficile antigen and toxin were positive, and she is on oral vancomycin. ASSESSMENT AND PLAN: 1. Hypotension in the setting of hypoalbuminemia, intravascular volume depletion, and severe protein energy malnutrition. Echocardiogram, cortisols, blood cultures have been unremarkable. Stop intravenous fluids. Encourage oral intake. Give additional intravenous albumin. 2. Acute Clostridium difficile-associated diarrhea. Continue oral vancomycin. 3. Profound electrolyte abnormalities due to poor nutritional intake on presentation including hypernatremia, hyperchloremia, hypokalemia, hypocalcemia, hypoglycemia, hypophosphatemia, currently getting better. Continue total parenteral nutrition and oral intake as tolerated. 4. History of gastric bypass in 2004, perforated peptic ulcer in 2009, weight loss, and chronic vomiting and diarrhea since 2013. She was being worked up outpatient by a regular doctor and gastroenterology. She has been on hospice and total parenteral nutrition was prescribed to her. 5. Disposition. I will monitor her electrolytes tomorrow. If she does okay, my plan is to discharge her home. Plan of care discussed with the patient. Her questions have been answered. cc: Bob Rodriguez MD
[2019-09-08] MEDS: TPN ELECTROLYTES IV SCH ×9 (16:22)
[2019-09-08] MEDS: CALCIUM GLUCONATE IV SCH ×9 (16:22)
[2019-09-08] MEDS: [UNRECOGNIZED DRUG - OTHER] IV SCH ×9 (16:22)
[2019-09-08] MEDS: LIPOSYN 20% 500 ML IV SCH (16:22)
[2019-09-08] MEDS: MAGNESIUM SULFATE IV SCH ×9 (16:22)
[2019-09-08] MEDS: DESYREL PO SCH (20:47)
[2019-09-08] MEDS: ZOLOFT PO SCH (20:47)
[2019-09-08] MEDS: REMERON PO SCH (20:47)
[2019-09-08] MEDS: TYLENOL PO PRN (20:55)
[2019-09-09] MEDS: VANCOCIN PO SCH ×2 (03:27→09:18)
[2019-09-09] MEDS: ZOFRAN IV PRN (04:22)
[2019-09-09] MEDS ORDERED: LASIX IV ONE (05:32)
--- NOTE | 2019-09-09 06:56 | Diag Imaging Result Doc PS360 ---
CHEST-PORTABLE - 09/09/2019 INDICATION: shortness of breath COMPARISON: 09/05/2019 FINDINGS: Stable right central catheter. There is been significant increase in the multilobar infiltrates on the right side worse in the right upper lobe. There has been some improvement in the left lower lobe infiltrate or atelectasis. Heart size and pulmonary vascularity is normal. There is probably a small right pleural effusion. IMPRESSION: Mixed changes, with overall worsening from prior. Electronically signed by Eliu Peck 09/09/2019 6:53 AM
[2019-09-09] MEDS ORDERED: LASIX PO ONE (07:45)
[2019-09-09] MEDS ORDERED: LEVAQUIN 750 MG/D5W 750 MG/150 ML IVPB IV SCH (08:00)
[2019-09-09] MEDS: CENTRUM SILVER PO SCH (09:18)
[2019-09-09] MEDS: KEPPRA PO SCH (09:18)
[2019-09-09] MEDS: PROTONIX PO SCH (09:18)
[2019-09-09] MEDS: TUMS PO SCH (09:18)
[2019-09-09] MEDS: CELEBREX PO SCH (09:18)
[2019-09-09] MEDS: THYROID PO SCH (09:18)
[2019-09-09] MEDS ORDERED: LEVAQUIN PO ONE (09:37)
[2019-09-09 10:55] LABS: AGAP 20; BUN 4 mg/dL (8-22); CHLORIDE 103 mmol/L (98-107); COSMO 286; CREATININE 0.7 mg/dL (0.5-0.9); ESTIMATED GFR > 60; GLUCOSE 108 mg/dL (70-104); MAGNESIUM 1.8 mg/dL (1.5-2.7); PHOSPHORUS 2.9 mg/dL (2.7-4.5); POTASSIUM 4.1 mmol/L (3.5-5.1); SODIUM 145 mmol/L (136-145); TCO2 22 mmol/L (25-35)
[2019-09-09] MEDS ORDERED: DIFLUCAN PO ONE (10:59)
[2019-09-09 11:10] VITALS: BP 105/75
[2019-09-09] MEDS: LIDODERM TOP SCH (11:17)
--- NOTE | 2019-09-10 07:31 | DISCHARGE SUMMARY ---
ADMISSION DATE: 09/04/2019 DISCHARGE DATE: 09/09/2019 DISCHARGE DISPOSITION: Home with home care agency on TPN. DISCHARGE DIAGNOSES: 1. Hypotension due to hypoalbuminemia, intravascular volume depletion, and severe protein energy malnutrition. 2. Acute Clostridium difficile associated diarrhea. 3. Acute pulmonary edema and pleural effusion on right due to iatrogenic volume overload. 4. Right-sided lower lobe pneumonia. 5. Profound electrolyte abnormalities including hypernatremia, hyperchloremia, hypokalemia, hypocalcemia, hypoglycemia, and hypophosphatemia on presentation due to poor oral intake. 6. Candidal vaginitis. OTHER DIAGNOSIS: 1. Severe protein energy malnutrition due to inability to tolerate oral. 2. On total parenteral nutrition now. 3. Previous history of gastric bypass in 2004. 4. History of perforated peptic ulcer in 2009. 5. Chronic weight loss, chronic vomiting, and chronic diarrhea since 2013, being worked up outpatient. 6. Anemia. 7. Chronic low back pain. DISCHARGE MEDICATIONS: 1. Mirtazapine 15 mg at nighttime. 2. Sertraline 100 mg at nighttime. 3. Trazodone 50 mg at nighttime. 4. Multivitamin with minerals 1 tablet in the morning time. 5. Ferrous Sulfate 325 mg daily. 6. Levetiracetam 500 mg b.i.d. 7. Magnesium oxide 800 mg b.i.d. 8. Thyroid 65 mg tablet 1 tablet b.i.d. 9. Nystatin oral swish and swallow as directed. 10. Pantoprazole 40 mg in the morning time. 11. Percocet 10 1 tablet 4 times a day as needed for back pain. 12. Phenergan 25 mg per rectal b.i.d. for nausea and vomiting. 13. Vitamin D3 2000 units daily. 14. Vancomycin 125 mg orally every 6 hours for 11 more days. 15. Fluconazole 150 mg once if she develops candidal vaginitis. 16. Levofloxacin 500 mg daily four more tablets have been prescribed. 17. Methocarbamol 750 mg b.i.d. as needed for muscle cramps. DISCHARGE INSTRUCTIONS: She was provided detailed discharge instructions about hypotension, minimizing use of sedatives, as well as pain medications and all of her questions were answered. VITALS: At the time of discharge, temperature of 98.6 degrees, pulse 94, respiratory 21, blood pressure 120/80 and saturating 100% on 2 L nasal cannula. PHYSICAL EXAMINATION: She is not in acute distress. Oral cavity is moist. She has cheilitis of angle of mouth. Air entry bilaterally equal. No wheeze or rhonchi. Slight diminished air entry on right infrascapular region with inspiratory crackles. S1, S2 normal. Not tachycardic. No murmur, rub, or gallop. She has a right-sided chest central venous catheter through which she is receiving TPN. Abdomen is soft and nontender. Active bowel sounds. No lower extremity edema. She is alert and oriented x3. LABORATORY: Significant labs during hospitalization, her hemoglobin is 7.2 and platelet 164,000. On presentation, her sodium was 146 which was 148 at the time of discharge. Her potassium was 3.4 which was improving at the time of discharge. Her chloride was 123 on presentation, which was 103 at the time of discharge. Her BUN is 3, creatinine 0.6. On presentation, her glucose was 39. However, at the time of discharge was 111. She did have hypocalcemia during hospitalization, and she was started on calcium carbonate. Her phosphorus was 1.6 on presentation, which is improving to 2.6 at the time of discharge. Her TSH was 3. AST and ALT were normal. MICROBIOLOGY: C. Difficile antigen and toxin were positive. Blood culture did not have any growth. Her cortisol levels were 8.5 on presentation and 99.1, subsequently. SIGNIFICANT IMAGING DURING HOSPITAL ADMISSION: Chest x-ray on admission had small bibasilar pleural effusions. Echocardiogram on admission had normal wall thickness, and systolic function of 60% with normal wall motion. Chest x-ray on 09/09 had significant increase infiltrate on the right side which was worse on the right upper lobe. There has been some improvement in the left lower lobe infiltrate or atelectasis. There was probably a small right pleural effusion. EKG on presentation had a normal sinus rhythm low voltage QRS. HOSPITAL COURSE SUMMARY: Ms. Ravi is a 49 year old lady who has had inability to gain weight since 2013 related to frequent vomiting and diarrhea, who was being worked up outpatient for that, who was about to start total parenteral nutrition outpatient through right-sided central venous catheter under supervision of her outpatient provider. She was sent to the emergency room because of multiple electrolyte abnormalities, and concern for re feeding syndrome before TPN could be started. In the emergency room, she was found to be hypotensive with blood pressure of 80s over 50s so she was admitted to the PBC unit for further management. It was thought that her multiple electrolyte abnormalities including hypernatremia, hyperchloremia, hypophosphatemia, and hypoglycemia were related to poor oral intake, poor nutrition, and intravenous boluses that she was receiving at home as needed so her TPN was not initially restarted. In fact, her electrolytes were corrected with appropriate fluids and intravenous albumin. Once her electrolytes were appropriate, her TPN was started and at the time of dictation she has been on TPN for 48 hours without significant complication. Her hypotension was thought to be related to poor nutrition since her cortisol echocardiogram were negative. There was no definitive evidence of sepsis. However, at the time of discharge, she did complain of shortness of breath and chest x-ray had detected development of new infiltrate on the right side of the lung, which was thought to be related to more so pulmonary edema rather than pneumonia. She was given a dose of intravenous Lasix with significant improvement, and was also started on oral Levaquin at the time of discharge. Initially, stool studies were positive for C. Difficile and she will be discharged on oral vancomycin. TIME SPENT: More than 30 minutes of time was spent in discharging the patient. Plan of care was discussed with the patient. All of her questions were answered. Since the patient complained of shortness of breath, home O2 evaluation is underway. cc: MD JIGNESH Shah
[2019-09-10] MEDS ORDERED: LEVAQUIN PO SCH (09:00)
[2019-09-10] MEDS ORDERED: DIFLUCAN PO SCH (09:00)
== END 2019-09-09 15:10 | disposition home health service (06) | DRG 640 ==
LOC: ED 17:00 → 2N 22:34 → SUATTDRO 22:34
PROVIDERS: ATTEND Internal Medicine

== ENCOUNTER 2019-09-17 18:17 | Inpatient (IN) ==
[2019-09-17 18:55] LABS: BASO# 0.07 X1000 (0.0-0.2); BASO% 0.9 % (0.0-0.8); EOS# 0.12 X1000 (0.0-0.7); EOS% 1.6 % (0.0-10.0); HEMATOCRIT 23.3 % (37.0-47.0); HEMOGLOBIN 7.1 g/dL (12.0-16.0); IMM GRAN# 0.04 X1000 (0.0-0.04); IMM GRAN% 0.5 % (0.0-0.5); LYMPH# 3.24 X1000 (1.2-3.4); LYMPH% 43.8 % (20.5-51.1); MCHC 30.5 g/dL (33-37); MCV 108.4 FL (81-99); MONO# 0.37 X1000 (0.11-0.59); MPV 10.5 FL (7.4-10.4); NEUT# 3.56 X1000 (1.4-6.5); NEUT% 48.2 % (42.2-75.2); PLT 253 X1000 (130-400); RBC 2.15 XMIL (4.2-5.4); RDW 15.4 % (11.5-14.5)
[2019-09-17 18:57] LABS: INR 1.25; PROTIME 15.9 Seconds (11.0-16.0)
[2019-09-17 18:58] LABS: PTT 40.2 Seconds (22.3-41.8)
[2019-09-17 19:00] LABS: AGAP 19; ALB/GLOB RATIO 0.9; ALBUMIN 2.6 g/dL (3.5-5.0); ALKALINE PHOSPHATASE 162 U/L (32-104); BUN 9 mg/dL (8-22); CALCIUM 7.7 mg/dL (8.8-10.2); CHLORIDE 98 mmol/L (98-107); COSMO 280; CREATININE 0.6 mg/dL (0.5-0.9); ESTIMATED GFR > 60; GLUCOSE 72 mg/dL (70-104); GOT 45 U/L (10-30); GPT 15 U/L (10-36); POTASSIUM 5.1 mmol/L (3.5-5.1); SODIUM 142 mmol/L (136-145); TCO2 25 mmol/L (25-35); TOTAL BILIRUBIN 0.26 mg/dL (0.20-1.00); TOTAL PROTEIN 5.5 g/dL (6.3-8.3)
[2019-09-17] MEDS ORDERED: PEPCID IV ONE (21:09)
[2019-09-17] MEDS ORDERED: PROTONIX PO ONE (21:09)
[2019-09-17] MEDS ORDERED: SODIUM CHLORIDE 0.9% INJ ONE (21:11)
[2019-09-17] MEDS ORDERED: TORADOL IV ONE (21:54)
--- NOTE | 2019-09-17 22:40 | HISTORY AND PHYSICAL ---
PRIMARY CARE PHYSICIAN: Dr. Mendoza. CHIEF COMPLAIN: Blood in stools. HISTORY OF PRESENTING ILLNESS: A 49-year-old female with a history of malnutrition, anemia, depression, low back pain who was in hospital several weeks ago to start TPN. She states that she was discharged; however, she did not feel well. She also states that she was noticing blood in her stools that has been ongoing. She was evaluated in the ER and due to her presenting symptoms, it was thought that she would need admission for further management. At the time of my examination, the patient denied any headache, fever, chills, chest pain, shortness of breath, but complained of weight loss and noticing blood in stool. PAST MEDICAL HISTORY: Includes malnutrition with cachexia, iron-deficiency anemia, depression, chronic low back pain. PAST SURGICAL HISTORY: Gastric bypass, peptic ulcer repair, cholecystectomy, cervical fusion. ALLERGIES: Biaxin, Demerol, penicillin, Bactrim DS, Restoril. CURRENT MEDICATIONS: She does not recall and nursing staff we will reconcile. SOCIAL HISTORY: [id number] history of smoking. She denies any history of alcohol or illicit drug use. FAMILY HISTORY: Positive for coronary disease in father. REVIEW OF SYSTEMS: Fourteen point review of systems is as in HPI. Other systems negative. PHYSICAL EXAMINATION: GENERAL: Cooperative, friendly female. She is resting more comfortably now. the patient appears malnourished. VITAL SIGNS: Temperature 99.7 degrees, pulse 80, respirations 17, blood pressure 83/53. HEENT: Atraumatic, normocephalic. Extraocular movements intact. PERRLA. NECK: No masses. CHEST: Clear to auscultation. CARDIOVASCULAR: Regular rate and rhythm. ABDOMEN: Soft. Positive bowel sounds. EXTREMITIES: No edema. NEUROLOGIC: She is awake, alert, oriented x3. : No bladder distention. SKIN: Warm. LABORATORIES AND STUDIES: WBC 7.40, hemoglobin 7.1, hematocrit 23.3, platelets 253,000. Sodium 142, potassium 5.1, chloride 98, CO2 25, BUN is 9. Creatinine 0.6, glucose is 72. TSH is 19.92. ASSESSMENT: A 49-year-old female with a history of iron-deficiency anemia, depression, chronic low back pain, malnutrition who presented to emergency department due to having red-colored blood in stools. The patient states that it was ongoing, she did not feel well and subsequently she had come to the emergency department. In the emergency department she was evaluated and due to her presenting symptoms, she will need admission for further management. 1. Suspected lower gastrointestinal bleed. 2. Severe malnutrition. 3. Depression. 4. Chronic low back pain. PLAN: 1. We will admit patient to medical floor with telemetry. 2. We will keep patient NPO. Start patient on proton pump inhibitor. 3. We will consult Gastroenterology. 4. We will continue with her total parenteral nutrition. 5. We will restart her home medications. 6. We will put patient on deep vein thrombosis prophylaxis with sequential compression devices. 7. We will continue to follow and reassess, and make further recommendation based on patient's clinical course. cc: John Florez MD
[2019-09-17] MEDS ORDERED: NS 500 ML IV ONE (22:55)
[2019-09-18] MEDS: PROTONIX IV SCH ×4 (00:27→22:46)
[2019-09-18] MEDS: NS 1,000 ML IV SCH ×3 (00:27→20:49)
[2019-09-18 06:37] LABS: BASO# 0.06 X1000 (0.0-0.2); BASO% 0.7 % (0.0-0.8); EOS# 0.06 X1000 (0.0-0.7); EOS% 0.7 % (0.0-10.0); HEMATOCRIT 23.3 % (37.0-47.0); HEMOGLOBIN 6.8 g/dL (12.0-16.0); IMM GRAN# 0.04 X1000 (0.0-0.04); IMM GRAN% 0.5 % (0.0-0.5); LYMPH# 2.21 X1000 (1.2-3.4); LYMPH% 27.4 % (20.5-51.1); MCH 31.8 PG (27-31); MCHC 29.2 g/dL (33-37); MCV 108.9 FL (81-99); MONO# 0.39 X1000 (0.11-0.59); MONO% 4.8 % (1.7-9.3); MPV 10.5 FL (7.4-10.4); NEUT% 65.9 % (42.2-75.2); PLT 268 X1000 (130-400); RBC 2.14 XMIL (4.2-5.4); RDW 15.2 % (11.5-14.5); WBC 8.06 X1000 (4.8-10.8)
[2019-09-18 07:01] LABS: AGAP 11; BUN 8 mg/dL (8-22); CALCIUM 7.8 mg/dL (8.8-10.2); CHLORIDE 100 mmol/L (98-107); COSMO 276; CREATININE 0.6 mg/dL (0.5-0.9); ESTIMATED GFR > 60; GLUCOSE 76 mg/dL (70-104); POTASSIUM 4.2 mmol/L (3.5-5.1); SODIUM 140 mmol/L (136-145); TCO2 29 mmol/L (25-35)
[2019-09-18] MEDS ORDERED: NS 500 ML IV ONE (07:29)
[2019-09-18] MEDS: KEPPRA PO SCH ×2 (08:31→20:50)
[2019-09-18] MEDS ORDERED: NS 500 ML IV SCH (09:00)
--- NOTE | 2019-09-18 09:07 | PROGRESS NOTE ---
DATE: 09/18/2019 SUBJECTIVE: Patient reports not feeling well. He is feeling very weak. Apparently no signs of more bloody stools. OBJECTIVE: Vital Signs: Temperature 98.4 degrees, heart rate 82, respiratory rate 15, blood pressure 84/51, O2 saturation 95% on. room air. General Examination: Patient is a chronically ill appearing, malnourished and looking older than her stated age 49-year-old female lying in bed, in no acute distress. Cardiovascular: S1, S2 heard. No murmurs, gallops, or rubs. Regular rate and rhythm. Respiratory: Clear bilaterally to auscultation. No work of breathing or using accessory muscles. Abdomen: Soft, nontender to palpation. Bowel sounds present. No organomegaly. Extremities: No clubbing, cyanosis, or edema. Peripheral pulses present in both legs. Neurological: Patient alert, oriented x3. Moves 4 extremities. LABORATORY DATA: White cell count 8.06, hemoglobin 6.8, hematocrit 23.3, platelets 268,000 with normal BMP except calcium 7.8. ASSESSMENT AND PLAN: 1. Suspected lower gastrointestinal bleeding. The patient's hemoglobin has dropped to 6.8, so we are going to provide 2 units of blood. Gastroenterology has been consulted. We will follow recommendations from her prior admission from September 04 to . Is important to remark that she was seen both hypotension due to hypoalbuminemia. She has history of gastric bypass and history of perforated ulcer in 2018. 2. Severe malnutrition. According to last summary that we have done patient is supposed to be on total parenteral nutrition. At this point, we will put on Clinimix now on after procedure will restart total parenteral nutrition. 3. Depression disorder. We will continue home medications. 4. Chronic low back pain. Patient has been started on morphine considering that she started having back pain again. 5. Disposition we will continue to monitor this patient closely. 6. Hypotension. It looks like this patient has a low blood pressure secondary to hypoalbuminemia. We are going to check prealbumin. We will provide IV fluids. cc: Raghav Willis MD
[2019-09-18] MEDS: SODIUM CHLORIDE 0.9% INJ SCH (11:21)
[2019-09-18] MEDS ORDERED: OFIRMEV 1000 MG/ISOTONIC SOLN 1,000 MG/100 ML BOTTLE IV PRN (11:56)
[2019-09-18] MEDS: CLINIMIX E 4.25%-5% SOLUTION 1,000 ML IV SCH ×3 (16:56→22:16)
[2019-09-18] MEDS ORDERED: GOLYTELY PO ONE (18:00)
--- NOTE | 2019-09-18 18:45 | GASTROENTEROLOGY CONSULTATION ---
DATE: 09/18/2019 REASON FOR CONSULT: GI bleed. HISTORY OF PRESENT ILLNESS: Ms. Ravi is a 49-year-old female, history of malnutrition, anemia, depression and chronic back pain. She was admitted to the hospital on 09/04 and was discharged on 09/09. She was admitted for hypotension due to hypoalbuminemia, intravascular volume depletion severe protein malnutrition. She had an EGD/Colonoscopy done 02/27/[address] Saini, findings were normal colon, status post gastroplasty, no anastomotic ulceration. Patient has had a gastric by pass surgery done. She came to the ER yesterday with complaints of nausea, vomiting and abdominal pain going on for the last couple of weeks with diarrhea and noticing blood in her stools. She denied any fever, chills or shortness of breath, and she also mentioned losing weight, but does not know how much she has lost. She said she has been having diarrhea every other day. Her H & H on admission was 6.8 and 23.3. Patient has received 2 units of PRBC's. PAST MEDICAL HISTORY: Malnutrition with cachexia, iron-deficiency anemia, depression, chronic low back pain. PAST SURGICAL HISTORY: Gastric bypass, cholecystectomy and cervical fusions. ALLERGIES: Biaxin, Demerol, penicillin, Bactrim DS and Restoril. MEDICATIONS: Current home medicines are Remeron 15 mg p.o. at bedtime; oxycodone 1 tablet 4 times a day; Protonix 40 mg; Zoloft 100 mg; thyroid (pork) 1 tablet twice a day 65 mg; trazodone 50 mg at bedtime, Levetiracetam 500 mg twice a day; Centrum Silver 1 mg; Phenergan 25 mg; magnesium oxide 800 mg twice a day; vitamin D3, 2000 units daily; ferrous sulfate 325 mg daily; Levaquin 500 mg p.o. x4; Robaxin 750 mg b.i.d. p.r.n. as needed; Diflucan 150 mg p.o. once. SOCIAL HISTORY: The patient is . She has 2 children. She smokes less than 2 packs of cigarettes daily. She has denied any alcohol or illicit drugs. FAMILY HISTORY: No significant GI malignancies. REVIEW OF SYSTEMS: As per HPI, otherwise 12-point review of system is negative. PHYSICAL EXAMINATION: Vital signs: Temperature 99.1 degrees, pulse 73, respirations 15, blood pressure 103/61, oxygen saturation 96% on room air. The patient's weight is 87 pounds. BMI is 15.1 kg/m2. General: Patient is extremely thin. She is alert, oriented x3, not a good historian. She was reluctant in answering questions and in no acute distress. HEENT: Pale conjunctivae. No icterus. PERRL. Neck supple. Lungs clear to auscultation in the anterior wolf. Cardiovascular: Regular rate and rhythm. Abdomen is soft, nontender, nondistended. Surgical scar on the mid abdomen. Active bowel sounds heard in all 4 quadrants. Extremities: No clubbing, no cyanosis, no edema. Pedal pulses 2+ present bilaterally. Neurological: Alert and oriented x3. Nonfocal. Cranial nerves 2-12 grossly intact. LABORATORY DATA: WBC is 8.06, RBC 2.14, hemoglobin 6.8, hematocrit 23.3, platelet count 268,000. Sodium 140, potassium 4.2, chloride 100, carbon dioxide 29, anion gap 11, BUN 8, creatinine 0.6, glucose 76, calcium 7.8, prealbumin 8.5. IMPRESSION: 1. Gastrointestinal bleed. 2. Malnutrition. 3. Diarrhea 4. Chronic back pain. 5. Depression 6. S/P gastric bypass surgery PLAN: The plan is to do an EGD and a colonoscopy tomorrow. The patient is currently on Protonix 40 mg twice a day. She is also receiving Clinimix 75 mL for nutrition and normal saline at 100 mL/h. We will continue to monitor her CBC, BMP and follow the plan of care per PCP. Further plan of care will be based on the EGD/Colonoscopy findings. This plan was discussed with Dr. Harris. Thank you for your consult. Please call us for any further questions or concerns. Dictated by JANNA Mello for Jason Harris MD Physician Attestation I have seen and examined the patient. I have discussed and reviewed the the note by Shreya SALDIVAR and agree with findings and plan as documented. In brief, Ms. Cecile Ravi is a 49 year old woman with h/o RYGB who presents with N/V/D, abdominal pain, rectal bleeding, and abnormal weight loss. She had EGD/colonoscopy in 02/[address] Saini that was unrevealing for etiology. She was scheduled to be seen by oncology this week for evaluation of her weight loss (66 pounds in last year). Labs notable for macrocytic anemia. Abdominal MRI and CT chest in 02/2018 was negative. She had chronic liver disease workup and stool studies, which were also negative. Prior CA-19-9 was elevated at that time. Will plan for diagnostic EGD/colonoscopy with Dr. Gilbert on . Transfuse prn goal hgb 7-8. MTDD
[2019-09-19] MEDS: MORPHINE IV PRN ×3 (04:25→20:51)
[2019-09-19] MEDS: ZOFRAN IV PRN ×2 (04:26→13:47)
[2019-09-19 06:14] LABS: BASO# 0.08 X1000 (0.0-0.2); BASO% 1.4 % (0.0-0.8); EOS# 0.06 X1000 (0.0-0.7); HEMATOCRIT 32.6 % (37.0-47.0); HEMOGLOBIN 9.9 g/dL (12.0-16.0); IMM GRAN# 0.03 X1000 (0.0-0.04); IMM GRAN% 0.5 % (0.0-0.5); LYMPH# 2.43 X1000 (1.2-3.4); LYMPH% 41.3 % (20.5-51.1); MCH 28.6 PG (27-31); MCHC 30.4 g/dL (33-37); MCV 94.2 FL (81-99); MONO% 6.8 % (1.7-9.3); NEUT# 2.89 X1000 (1.4-6.5); PLT 240 X1000 (130-400); RBC 3.46 XMIL (4.2-5.4); RDW 26.2 % (11.5-14.5); WBC 5.89 X1000 (4.8-10.8)
[2019-09-19 06:31] LABS: AGAP 16; BUN 12 mg/dL (8-22); CALCIUM 7.8 mg/dL (8.8-10.2); CHLORIDE 104 mmol/L (98-107); COSMO 277; CREATININE 0.4 mg/dL (0.5-0.9); ESTIMATED GFR > 60; GLUCOSE 86 mg/dL (70-104); POTASSIUM 4.5 mmol/L (3.5-5.1); SODIUM 139 mmol/L (136-145); TCO2 19 mmol/L (25-35)
[2019-09-19] MEDS: CENTRUM SILVER PO SCH (09:44)
[2019-09-19] MEDS: KEPPRA PO SCH ×2 (09:44→20:50)
--- NOTE | 2019-09-19 09:44 | PROGRESS NOTE ---
DATE: 09/19/2019 SUBJECTIVE: Patient reports feeling fine. She said that was some kind of difficult to drink all this colon preparation, and as per nursing staff, she did not of course finish that. No more bloody stools reported. She had received yesterday 2 units of blood. OBJECTIVE: Vital Signs: Temperature 98.4 degrees, heart rate 56, respiratory rate 16, blood pressure 100/62, O2 saturation 94% on room air. General Examination: This is a chronically ill- appearing, malnourished and looking older than her stated age, 49-year-old female, lying in bed in no acute distress. Cardiovascular exam: S1, S2 heard. No murmurs, gallops, or rubs. Regular rate and rhythm. Respiratory exam: Clear bilaterally to auscultation. No work of breathing or using accessory muscles. Abdomen: Soft, nontender to palpation. Bowel sounds present. No organomegaly. Extremities: No clubbing, cyanosis or edema. Peripheral pulses present in both legs. Neurological exam: The patient is alert and oriented x3. Moves 4 extremities. LABORATORY DATA: White cell count 5.89, hemoglobin 9.9, hematocrit 32.6, platelets 240. Normal BMP. ASSESSMENT AND PLAN: 1. Lower gastrointestinal bleeding. After 3 units of blood, hemoglobin is much better. Gastroenterology has planned to do a colonoscopy and endoscopy, but because she did not finish her colon preparation, they are planning to do it tomorrow. We will start a clear liquid diet. We will try to make her finish the GoLYTELY, and will see how she does tomorrow. It is important to remark that she has history of gastric bypass and history of perforated ulcer in 2018. 2. Severe malnutrition. Patient is on Clinimix. 3. Depression disorder. We will continue home medications. 4. Chronic low back pain. We will continue with morphine. 5. Hypotension, most likely related to hypovolemia. This is not a new problem for her. We will continue to monitor blood pressure closely. Prealbumin is very low at 8.5, which is not surprising. Will continue to monitor. 6. Disposition: We will try to do a colonoscopy and endoscopy tomorrow. cc: MD JIGNESH Loving
[2019-09-19] MEDS ORDERED: SODIUM CHLORIDE 0.9% INJ PRN (09:49)
[2019-09-19] MEDS ORDERED: PHENERGAN IV PRN (09:49)
[2019-09-19] MEDS: CLINIMIX E 4.25%-5% SOLUTION 1,000 ML IV SCH ×2 (11:21→20:50)
[2019-09-19] MEDS: PROTONIX IV SCH ×3 (11:21→23:04)
[2019-09-19] MEDS: SODIUM CHLORIDE 0.9% INJ SCH ×2 (11:21→20:51)
--- NOTE | 2019-09-19 15:48 | GASTROENTEROLOGY PROGRESS NOTE ---
DATE: 09/19/2019 SUBJECTIVE: Ms. Ravi 49 year old female resting in bed. Family at the bedside. The patient was supposed to have her GoLYTELY prep today, but she said that she was not able to drink everything yesterday, she has denied any bloody Stools. OBJECTIVE: Vital Signs: Temperature 98.4 degrees, pulse 56, respirations 16, blood pressure 100/62, oxygen saturation 94%. She is on room air. Patient's weight is 91 pounds, BMI is 15.6 kg/m2. General: She is alert and oriented x3. Extremely thin and in no acute distress. HEENT: Pale conjunctivae. No icterus. PERRL. Neck: Supple. Lungs: Clear to auscultation in the anterior wolf. Cardiovascular: Patient is bradycardic. Abdomen: Soft. Mildly tender. Nondistended. Active bowel sounds heard in all 4 quadrants. She has a surgical scar from the previous gastric bypass. Extremities: No cyanosis. No clubbing. No edema. Pedal pulses 2+, present bilaterally. Neurological: Alert and oriented x3. LABORATORY: WBC 5.89, RBC 3.46, hemoglobin 9.9, hematocrit is 32.6, platelet count is 240,000. Sodium is 139, potassium is 4.5, chloride is 104, carbon dioxide 19, anion gap 16, BUN 12, creatinine 0.4, glucose is 86, calcium 7.8. IMPRESSIONS: 1. GI/Rectal bleed. 2. Malnutrition. 3. Diarrhea. 4. Weight loss 5. Depression. 6. Status post gastric bypass. PLAN: The plan was to do an EGD and colonoscopy today but the patient had not completed her colon prep. We will do an EGD and a colonoscopy tomorrow. We will continue to follow the current plan of care. The patient is on Protonix 40 mg IV twice a day. She is receiving Clinimix 75 mL/h for her nutrition. For her nausea and vomiting, patient is on Phenergan and Zofran as needed. The patient's hemoglobin and hematocrit currently are 9.9 and 32.6. It has been trending upwards. We will continue to monitor her CBC, BMP and if her hemoglobin drops below 7, we will transfuse a unit of blood. Further plan of care will be based on the EGD and colonoscopy findings. This plan was discussed with Dr. Gilbert. Please call us for any further questions or concerns. Dictated by JANNA Mello for Venkat Gilbert MD cc: Venkat Gilbert MD I have seen and examined the patient myself. I agree with the above plan of care. I have discussed the above with the patient and all questions were answered. Please call us with any further questions or concerns. MTDWillard
[2019-09-19] MEDS ORDERED: CALMOSEPTINE OINTMENT TOP PRN (16:29)
[2019-09-20] MEDS: CLINIMIX E 4.25%-5% SOLUTION 1,000 ML IV SCH ×2 (00:52→13:48)
[2019-09-20 06:00] LABS: BASO# 0.06 X1000 (0.0-0.2); BASO% 1.2 % (0.0-0.8); EOS# 0.11 X1000 (0.0-0.7); EOS% 2.1 % (0.0-10.0); HEMATOCRIT 30.9 % (37.0-47.0); HEMOGLOBIN 9.5 g/dL (12.0-16.0); IMM GRAN# 0.03 X1000 (0.0-0.04); IMM GRAN% 0.6 % (0.0-0.5); LYMPH# 2.44 X1000 (1.2-3.4); MCH 29.4 PG (27-31); MCHC 30.7 g/dL (33-37); MCV 95.7 FL (81-99); MONO% 7.7 % (1.7-9.3); MPV 10.1 FL (7.4-10.4); NEUT# 2.15 X1000 (1.4-6.5); NEUT% 41.4 % (42.2-75.2); PLT 221 X1000 (130-400); RBC 3.23 XMIL (4.2-5.4); RDW 24.8 % (11.5-14.5); WBC 5.19 X1000 (4.8-10.8)
[2019-09-20] MEDS ORDERED: XYLOCAINE-MPF 2% ONE (07:25)
[2019-09-20] MEDS ORDERED: DIPRIVAN 1% ONE (07:25)
[2019-09-20 09:51] LABS: AGAP 16; BUN 12 mg/dL (8-22); CALCIUM 8.4 mg/dL (8.8-10.2); CHLORIDE 107 mmol/L (98-107); COSMO 286; CREATININE 0.4 mg/dL (0.5-0.9); ESTIMATED GFR > 60; GLUCOSE 82 mg/dL (70-104); POTASSIUM 4.9 mmol/L (3.5-5.1); SODIUM 144 mmol/L (136-145); TCO2 21 mmol/L (25-35)
[2019-09-20] MEDS: CENTRUM SILVER PO SCH (10:56)
--- NOTE | 2019-09-20 11:34 | PROGRESS NOTE ---
DATE: 09/20/2019 SUBJECTIVE: The patient reports feeling fine. No more episodes of bloody stools. She was able to complete only probably a little bit more than half of the gallon for GoLDesmosLY. OBJECTIVE: Vital Signs: Temperature 98.4 degrees, heart rate 59, respiratory rate 16, blood pressure 100/55, and O2 saturation 99% on room air. General: This is a chronically ill- appearing, malnourished, looking older than her stated age of 49-year-old female lying in bed in no acute distress. Cardiovascular: S1, S2 heard. No murmurs, gallops, or rubs. Regular rate and rhythm. Respiratory: Clear bilaterally to auscultation. No work of breathing or using accessory muscles. Abdomen: Soft, nontender to palpation. Bowel sounds present. No organomegaly. Extremities: No clubbing, cyanosis, or edema. Peripheral pulses present in both legs. Neurological: Patient alert and oriented x3. Moves 4 extremities. LABORATORY DATA: CBC showed hemoglobin 9.5, hematocrit 30.9, and platelets are normal. There is no BMP from today. ASSESSMENT AND PLAN: 1. Lower GI bleeding. After 2 units of blood, hemoglobin continues to be stable. Initially, GI has planned to do colonoscopy and endoscopy yesterday but because she did not finish preparation, she was scheduled for today. We will see what that procedure shows, and we will go from there. 2. Severe malnutrition. Patient is on Clinimix. We will continue with the same management. 3. Depression disorder. We will continue home medications. 4. Chronic low back pain. We will continue with morphine. 5. Hypotension most likely related to hypoalbuminemia. As we mentioned in our previous notes, that is nothing new for her. We will continue to monitor this patient closely. Prealbumin is 8.5. We will continue with Clinimix. 6. Disposition. At this point, we will see what colonoscopy and endoscopy shows today. cc: Raghav Willis MD
[2019-09-20] MEDS: PROTONIX IV SCH (11:46)
--- NOTE | 2019-09-20 12:18 | ENDOSCOPY OPERATIVE NOTE ---
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 PROCEDURE PERFORMED: EGD w/ biopsy MEDICATIONS: Per Anesthesia TOPICAL ANESTHETIC: none CONSENT: The patient understands the risks and benefits of the procedure and understands that these r isks include, but are not limited to: sedation, allergic reaction, infection, perforation and/or bleeding. Alternative means of evaluation and treatment include, among others: physical exam, x-rays, and/or surgical intervention. The patient elects to proceed with this endoscopic procedure. HISORY AND PHYSICAL: 09/20/2019 DESCRIPTION OF PROCEDURE: During intra-op preparation period all mechanical and medical equipment was checked for proper function. Hand hygiene and appropriate measures for infection prevention was taken. After the risks, benefits and alternatives of the procedure were thoroughly explained, Informed consent was verified, confirmed and timeout was successfully executed by the treatment team. The patient was anesthetized with topical anesthesia and the [id number] ([id number]) and [id number] ([id number]) endoscope was introduced through the mouth and advanced to the prox imal jejunum. Retroflexion was performed in the stomach and revealed no abnormalities. The gastroscope was then sl owly withdrawn and removed. ESOPHAGUS: The mucosa of the esophagus appeared normal. STOMACH: RYGB anatomy with tiny gastric pouch. A single non-bleeding, linear and clean-based ulcer ranging between 3-5 mm in size was found at the gastro-jejunal anastomosis. JEJUNUM / ILEUM: The mucosa appeared normal in the jejunum and ileum. A biopsy was performed using c old forceps. Sample sent for histology. SPECIMENS REMOVED: Yes ADVERSE EVENTS: There were no complications. POSTOPERATIVE DIAGNOSIS: 1. The mucosa of the esophagus appeared normal 2. RYGB anatomy with tiny gastric pouch 3. Single ulcer ranging between 3-5 mm in size was found at the gastro-jejunal anastomosis 4. The mucosa appeared normal in the jejunum and ileum.; biopsy was performed RECOMMENDATIONS: 1. Await biopsy results 2. Recomment pantoprazole 40mg PO BID for 3 months 3. Continue to colonoscopy procedure REPEAT EXAM: Jason Harris MD eSigned: Jason Harris MD 09/20/2019 12:18 PM cc: PATIENT NAME: Cecile Ravi MR#: [id number]
--- NOTE | 2019-09-20 12:23 | ENDOSCOPY OPERATIVE NOTE ---
[facility] ENDOSCOPY OPERATIVE NOTE , PATIENT: Cecile Ravi ADM DATE: 09/20/2019 MR #: [id number] : 1970 COLONOSCOPY PROCEDURE REPORT PROCEDURE DATE: 09/20/2019 SURGEON: Jason Harris MD STATUS: inpatient STAFF RADIOLOGIST: PREOPERATIVE DIAGNOSIS: The patient is a 49 yr old female here for a colonoscopy due to anemia, non- specific, melena, and CDiff infection. PROCEDURE PERFORMED: Colonoscopy with biopsy MEDICATIONS: Per Anesthesia PREP TYPE: GoLytely
[2019-09-20] MEDS: VANCOCIN PO SCH ×2 (13:47→20:07)
[2019-09-20] MEDS: KEPPRA PO SCH ×2 (13:47→20:07)
[2019-09-20] MEDS: MORPHINE IV PRN ×2 (13:48→20:27)
--- NOTE | 2019-09-20 18:26 | Diag Imaging Result Doc PS360 ---
EXAM: CHEST-PORTABLE HISTORY: picc line placement TECHNIQUE: Single view COMPARISON: 09/09/2019 FINDINGS: The lungs are well expanded. The heart is not enlarged. The vessels are not distended. There are no infiltrates. No effusion identified. No change in the right portacatheter. There is no PICC line. IMPRESSION: Negative exam. Electronically signed by Franklin Sauceda 09/20/2019 6:23 PM
[2019-09-20] MEDS: PROTONIX PO SCH (20:07)
[2019-09-21] MEDS: VANCOCIN PO SCH ×2 (01:27→08:48)
[2019-09-21] MEDS: MORPHINE IV PRN ×2 (01:49→07:16)
[2019-09-21] MEDS: CLINIMIX E 4.25%-5% SOLUTION 1,000 ML IV SCH ×2 (02:25→02:27)
[2019-09-21 06:09] LABS: AGAP 12; BUN 12 mg/dL (8-22); CHLORIDE 99 mmol/L (98-107); COSMO 267; CREATININE 0.4 mg/dL (0.5-0.9); ESTIMATED GFR > 60; GLUCOSE 83 mg/dL (70-104); POTASSIUM 4.4 mmol/L (3.5-5.1); SODIUM 134 mmol/L (136-145); TCO2 23 mmol/L (25-35)
[2019-09-21 06:32] LABS: BASO# 0.05 X1000 (0.0-0.2); BASO% 0.8 % (0.0-0.8); EOS# 0.09 X1000 (0.0-0.7); EOS% 1.4 % (0.0-10.0); HEMATOCRIT 31.3 % (37.0-47.0); HEMOGLOBIN 9.3 g/dL (12.0-16.0); IMM GRAN# 0.04 X1000 (0.0-0.04); IMM GRAN% 0.6 % (0.0-0.5); LYMPH% 44.9 % (20.5-51.1); MCH 28.9 PG (27-31); MCHC 29.7 g/dL (33-37); MCV 97.2 FL (81-99); MONO# 0.47 X1000 (0.11-0.59); MONO% 7.5 % (1.7-9.3); NEUT# 2.78 X1000 (1.4-6.5); NEUT% 44.8 % (42.2-75.2); PLT 219 X1000 (130-400); RBC 3.22 XMIL (4.2-5.4); RDW 23.1 % (11.5-14.5); WBC 6.23 X1000 (4.8-10.8)
[2019-09-21 08:05] VITALS: BP 124/73
[2019-09-21] MEDS: PROTONIX PO SCH (08:48)
[2019-09-21] MEDS: CENTRUM SILVER PO SCH (08:48)
[2019-09-21] MEDS: KEPPRA PO SCH (08:48)
--- NOTE | 2019-09-22 06:09 | DISCHARGE SUMMARY ---
ADMISSION DATE: 09/17/2019 DISCHARGE DATE: 09/21/2019 DISCHARGE DIAGNOSES: 1. Lower gastrointestinal bleeding. 2. Severe malnutrition. 3. Depression disorder. 4. Clostridium difficile infection, on ongoing treatment. 5. Chronic low back pain. CONSULTATIONS: Dr. Harris from GI. PROCEDURES: 1. 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 Otherwise normal colonoscopy. 2. Upper endoscopy showed Pricila-en-Y gastric bypass anatomy with tiny gastric pouch, single ulcer ranging between 3 to 5 mm in size that was found at the gastrojejunal anastomosis, mucosa appeared normal in the jejunum and ileum, and also in the esophagus as well. HOSPITAL COURSE: This is a 49-year-old female with past medical history of severe malnutrition on TPN, anemia, depression, low back pain who was admitted to the hospital because she was noticing some bloody stools, so admitted to the hospital. Her hemoglobin continued to drop to 6.8, so she was transfused 2 units of blood. Since then, her hemoglobin has been ranged between 9.9 and 9.3. She was feeling okay, no more episodes of bleeding. At this point, patient can be discharged home. We are going to restart TPN, that is provided by company, the patient needs just go to restart it. We will continue with 4 more days of treatment for Clostridium difficile colitis. We will provide prescriptions for iron pills. The patient is going to be seen in the office in [address] to [address] Harris. DISCHARGE PHYSICAL EXAMINATION: Vital signs: Temperature 98.4 degrees, heart rate 62, respiratory 16, blood pressure 134/73, O2 saturation 99% on room air. General: This is a 49- year-old female, very malnourished and frail, chronically ill-looking, lying in bed, in no acute distress. Cardiovascular: S1, S2 heard. No murmurs, gallops, or rubs. Regular rate and rhythm. Respiratory: Clear bilaterally to auscultation. No work of breathing or using accessory muscles. Abdomen: Soft, nontender to palpation. Bowel sounds present. No organomegaly. Extremities: No clubbing, cyanosis, or edema. Peripheral pulses present in both legs. Neurological: The patient alert, oriented x3. Moves 4 extremities. DISCHARGE DISPOSITION: Home to self-care. DISCHARGE MEDICATION: We are not making any changes to her current medications. We are adding the following medication, vancomycin 125 mg, 1 tablet p.o. q.6 hours for 4 days. TIME SPENT: Discharging this patient was 34 minutes. cc: Raghav Willis MD
--- NOTE | 2019-10-02 17:08 | PROVIDER DOCUMENTATION ---
This chart was entered by Sheri Garcia Scribe, acting as scribe for Rodriguez Stark MD. HPI-General Adult - General Chief Complaint: Abnormal Lab[s] Stated Complaint: POSS GI BLEED Time Seen by Provider: 09/17/19 18:32 Source: patient, family Allergies/Adverse Reactions: Patient Allergies Allergy/AdvReac Type Severity Reaction Status Date / Time bupropion HCl * Allergy Intermediate NAUSEA/VOMI Verified 09/04/19 22:03 [From Wellbutrin] TING clarithromycin [From Biaxin] Allergy Intermediate RASH Verified 09/04/19 22:03 meperidine HCl * Allergy Intermediate NAUSEA/VOMI Verified 09/04/19 22:03 [From Demerol] TING Penicillins Allergy Intermediate NAUSEA/VOMI Verified 09/04/19 22:03 TING sulfamethoxazole Allergy Intermediate NAUSEA/VOMI Verified 09/04/19 22:03 [From Bactrim DS] TING trimethoprim Allergy Intermediate NAUSEA/VOMI Verified 09/04/19 22:03 [From Bactrim DS] TING temazepam [From Restoril] Allergy Mild felt Verified 09/04/19 22:03 strange Home Medications: Home Medication List Medication Instructions Recorded Confirmed Last Taken Type Levetiracetam 500 mg PO BID 09/04/19 09/17/19 09/04/19 09:00 History Mirtazapine [Remeron] 15 mg PO QHS 09/04/19 09/17/19 09/03/19 21:00 History Multivitamins/Minerals [Centrum 1 ea PO QAM 09/04/19 09/17/19 09/03/19 09:00 History Silver] Oxycodone HCl/Acetaminophen 1 ea PO 4XDAY PRN 09/04/19 09/17/19 09/04/19 13:30 History [Percocet 10-325 mg Tablet] Pantoprazole Sodium 40 mg PO QAM 09/04/19 09/17/19 09/03/19 09:00 History Promethazine [Phenergan] 1 ea [place] BID 09/04/19 09/17/19 Unknown History Sertraline HCl 100 mg PO QHS 09/04/19 09/17/19 09/03/19 21:00 History Thyroid,Pork [Nature-Throid] 1 ea PO BID 09/04/19 09/17/19 09/03/19 09:00 History Trazodone HCl 50 mg PO QHS 09/04/19 09/17/19 09/03/19 21:00 History Cholecalciferol (Vitamin D3) 2,000 unit PO DAILY 09/05/19 09/17/19 Unknown History [Vitamin D3] Ferrous Sulfate 325 mg PO DAILY 09/05/19 09/17/19 Unknown History Magnesium Oxide 800 mg PO BID 09/05/19 09/17/19 Unknown History Fluconazole [Diflucan] 150 mg PO ONCE #1 tab 09/09/19 09/17/19 Unknown Rx Methocarbamol [Robaxin] 750 mg PO BID PRN PRN tab 09/09/19 09/17/19 Unknown Rx Pantoprazole [Protonix] 40 mg PO BID #60 tab 09/21/19 Unknown Rx Vancomycin [Vancocin] 125 mg PO Q6H #16 cap 09/21/19 Unknown Rx - History of Present Illness -Gen Adult Nature of Presenting Problems: pt is a 49 yr old female presenting with complaint of anemia, rectal bleeding, fatigue and weight loss. pt reports 50-60lb wt loss x 1 month, pt recently admitted due to weight loss. pt reports increased rectal bleeding over last several day. pt home health nurse had blood work ran which showed anemia and sent pt to ER. pt denies any nausea, vomiting or diarrhea. pt denies any pain Location of Pain/Injury: reports: none Pain Radiation: reports: no radiation Quality of Pain: reports: none Severity: reports: moderate Onset/Duration: reports: gradual Timing: reports: changing over time, getting worse Context/Activities at Onset: reports: light activity Modifying Factors: improves with: nothing Associated Symptoms: reports: fatigue, malaise, weakness. denies: back/neck pain, chest pain, constipation, diarrhea, fever/chills, shortness of breath Similar Symptoms Previously?: Yes Recently seen or treated by another doctor?: Yes Review of Systems - Adult - REVIEW OF SYSTEMS - ADULT Constitutional: reports: fatique, weight loss (pt reports 60LB x 1 month). denies: fever Eyes: denies: blurred vision, double vision Ears, Nose, Mouth & Throat: reports: no symptoms reported Cardiovascular: denies: chest pain, palpitations, syncope Respiratory: denies: shortness of breath Gastrointestinal: reports: rectal bleeding. denies: abdominal pain, diarrhea, nausea, vomiting Genitourinary: denies: dysuria, frequency, flank pain Musculoskeletal: reports: muscle weakness. denies: back pain, neck pain Integumentary: reports: no symptoms reported Neurological: denies: dizziness/vertigo, headache/migraines, syncope Psychiatric: reports: no symptoms reported Endocrine: reports: no symptoms reported Hematologic/Lymphatic: reports: no symptoms reported Allergic/Immunologic: reports: no symptoms reported All Other Systems: Reviewed and Negative Past History - Adult - PAST MEDICAL HISTORY-ADULT Review of Records: reports: Old Records Reviewed, Nursing Assessment Review, Medications Reviewed, Social history reviewed & non-contributory. Major Childhood Illnesses: reports: denies history Cardiovascular: reports: HTN Respiratory: reports: COPD, sleep apnea Gastrointestinal: reports: other (SBO) Obstetrical/Gynecological: reports: denies history Genitourinary: reports: denies history Musculoskeletal: reports: chronic pain Neurological: reports: denies history Psychiatric: reports: anxiety Endocrine/Immune: reports: thyroid disorder Other Conditions: reports: denies history - PRIOR SURGERIES/PROCEDURES Surgical/Procedure History: reports: cholecystectomy, , hernia repair, gastric bypass - PRIOR HOSPITALIZATIONS Prior Hospitalizations: reports: none - IMMUNIZATION STATUS Childhood Immunizations: See Nurse Assessment Flu Vaccine: See Nurse Assessment - FAMILY HISTORY Family History: reviewed, not pertinent - SOCIAL HISTORY Smoking: cigarettes Provider spent 3-5 mins advising pt. on dangers of tobacco.: Discussed manners to quit use, and f/u contacts for add'l counseling. Substance Use: alcohol Alcohol Use Frequency: rarely Living Situation: family Physical Exam-General - PHYSICAL EXAM-ADULT Initial Vital Signs Reviewed: Yes - CONSTITUTIONAL General Appearance: alert, no apparent distress, cachetic - EYES Eyes: PERRL/EOMI, pale conjunctivae, other (proptosis-bilateral) - HEAD, EARS, NOSE, MOUTH & THROAT HENMT: normocephalic/atraumatic, moist mucous membranes, normal ENT inspection - NECK Neck: non-tender, full range of motion, supple, normal inspection - RESPIRATORY Respiratory: lungs clear, normal breath sounds, no respiratory distress, no accessory muscle use - CARDIOVASCULAR Cardiovascular: normal peripheral pulses, regular rate, rhythm - GASTROINTESTINAL (ABDOMEN) Abdominal Exam: normal bowel sounds, non tender, soft, hernia (upper midline insicional hernia, easily reduced) - LYMPHATIC Lymphatic: no adenopathy - MUSCULOSKELETAL Back Exam: normal inspection, no CVA tenderness, no vertebral tenderness Extremity: normal range of motion, non-tender, pedal edema (4+ bilateral pitting edema) - SKIN Integumentary: pallor. negative: normal turgor - NEUROLOGIC Neurologic: grossly normal - PSYCHIATRIC Psych/Mental Status: normal mood/affect Progress - PLAN OF CARE/RESULTS Progress/Plan/Lab Results: Vital Signs - 8 hr 09/17/19 18:21 Temperature 99.7 F H Pulse Rate 80 Respiratory Rate 17 Blood Pressure 83/53 O2 Sat by Pulse Oximetry 98 Laboratory Results - last 24 hr 09/17/19 09/17/19 09/17/19 18:31 18:31 18:31 WBC 7.40 RBC 2.15 L Hgb 7.1 L Hct 23.3 L MCV 108.4 H MCH 33.0 H MCHC 30.5 L RDW Std Deviation 15.4 H Plt Count 253 MPV 10.5 H Immature Gran % (Auto) 0.5 Neut % (Auto) 48.2 Lymph % (Auto) 43.8 Robeson % (Auto) 5.0 Eos % (Auto) 1.6 Baso % (Auto) 0.9 H Immature Gran # (Auto) 0.04 Neut # (Auto) 3.56 Lymph # (Auto) 3.24 Robeson # (Auto) 0.37 Eos # (Auto) 0.12 Baso # (Auto) 0.07 PT 15.9 INR 1.25 PTT (Actin FS) 40.2 Sodium 142 Potassium 5.1 Chloride 98 Carbon Dioxide 25 Anion Gap 19 BUN 9 Creatinine 0.6 Estimated GFR/1.73 m2 > 60 BUN/Creatinine Ratio 15 Glucose 72 Calculated Osmolality 280 Calcium 7.7 L Total Bilirubin 0.26 AST 45 H ALT 15 Alkaline Phosphatase 162 H Total Protein 5.5 L Albumin 2.6 L Globulin 2.9 Albumin/Globulin Ratio 0.9 Blood Type Antibody Screen 09/17/19 18:31 WBC RBC Hgb Hct MCV MCH MCHC RDW Std Deviation Plt Count MPV Immature Gran % (Auto) Neut % (Auto) Lymph % (Auto) Robeson % (Auto) Eos % (Auto) Baso % (Auto) Immature Gran # (Auto) Neut # (Auto) Lymph # (Auto) Robeson # (Auto) Eos # (Auto) Baso # (Auto) PT INR PTT (Actin FS) Sodium Potassium Chloride Carbon Dioxide Anion Gap BUN Creatinine Estimated GFR/1.73 m2 BUN/Creatinine Ratio Glucose Calculated Osmolality Calcium Total Bilirubin AST ALT Alkaline Phosphatase Total Protein Albumin Globulin Albumin/Globulin Ratio Blood Type B NEGATIVE Antibody Screen NEGATIVE Orders Category Date Time Status CBC WITH ELECTRONIC DIFF [HEME] Stat Lab 09/17/19 18:31 Completed COMPREHENSIVE METABOLIC PANEL [CHEM] Stat Lab 09/17/19 18:31 Completed PROTIME WITH INR [COAG] Stat Lab 09/17/19 18:31 Completed PTT [COAG] Stat Lab 09/17/19 18:31 Completed TYPE & SCREEN [BBK] Stat Lab 09/17/19 18:31 Completed GI Bleed (possible) Stat Oth 09/17/19 18:32 Ordered Result Diagrams: 09/21/19 04:39 09/21/19 04:39 - CONSULTS/PCP/HOSPITALIST Notification #1 *Consult/PCP/Hospitalist*: Dr Florez Time Discussed: 21:15 Reason/Comments: discussed plan of care for pt admit Consult Disposition: Admit #2 Consult: DR RUTH Time Discussed: 09:36 Consult Disposition: Admit Departure - Departure Date of Disposition Decision: 09/21/19 Time of Disposition Decision: 09:36 DIAGNOSIS: Anemia, GI bleeding, Weight loss Disposition: ADMITTED INPATIENT 09 Certified Medical Emergency: Emergent Condition: Stable - Critical Care Note This patient required my direct & personal management of CC.: No Attestation - Physician/ AGAPITO Attestation Patient care was provided by Advanced Practice Provider:: No The physician spent face to face time with patient:: Yes Advanced Practice Provider documentation review:: Supervising physician onsite and consulted in the evaluation and care of this patient. The physician did have a face to face encounter with the patient. This chart was documented by the indicated scribe, (Sheri Garcia Scribe) and accurately reflects the services I performed and decisions made by me, Rodriguez Stark MD, as attested by the provider's signature.
== END 2019-09-21 10:25 | disposition home or self-care (01) | DRG 377 ==
LOC: ED 18:17 → 2N 23:16 → SUATTDRO 23:16
PROVIDERS: ATTEND Internal Medicine